=== PATIENT | female | born 1995 | race Caucasian/White ===

== ENCOUNTER 2017-03-10 12:47 | Day surgery (SDC) | payer OTHER, SELFPAY ==
--- NOTE | 2017-03-10 12:17 | CT ---
CT abdomen and pelvis Technique: Multiple axial sections were obtained from above the dome of the diaphragm inferiorly through the pubic symphysis. Intravenous and oral contrast was utilized. Delayed images were also obtained through the pelvis. Findings: Tubular structure is seen within the right lower quadrant. This appears to represent the patient's appendix and shows slight inflammatory change and is felt compatible with early appendicitis. Visualized lung bases are shows a nodule on the left side above the hemidiaphragm. This nodule measures approximately 9 mm and shows a central calcification and likely represents granuloma especially when considering the below described spleen findings. Liver appears within normal limits. Spleen shows evidence of calcified granulomas. Adrenal glands show no nodule. Pancreas is within normal limits. Aorta shows no aneurysmal dilatation. Kidneys show symmetric contrast enhancement without hydronephrosis or mass. There are some areas of cortical scarring noted within the right kidney. No mesenteric abnormalities are seen. No pelvic mass or adenopathy is seen. Bone window settings were reviewed which appears within normal limits for the patient's age. Impression: 1. Findings felt compatible with early appendicitis. 2. Small calcified granulomas within the spleen as well as a 9 mm granuloma within the left lung base. 3. Areas of scarring within the right kidney. 4. No additional abnormality is seen on CT study of the abdomen and pelvis. Diagnostic code #5
[~2017-03-10 12:47] MED LIST: Diatrizoate Meglumine/Diatrizoate Sodium 37% 120 ML Bottle PO ONE; Iopamidol 612 MG/ML 150 ML Bottle IVPUSH ONE; Sodium Chloride 0.9% 10 ML Syringe FLUSH PRN
[2017-03-10] MEDS ORDERED: Rocuronium 50 MG/5 ML Vial ONE (13:29)
[2017-03-10] MEDS ORDERED: Succinylcholine 200 MG/10 ML MDV ONE (13:29)
[2017-03-10] MEDS ORDERED: Dexamethasone 4 MG/ML 5 ML MDV ONE (13:29)
[2017-03-10] MEDS ORDERED: Lidocaine 1% 4 ML ONE (13:29)
[2017-03-10] MEDS ORDERED: Ondansetron 4 MG/2 ML SDV ONE (13:29)
[2017-03-10] MEDS ORDERED: Propofol 200 MG/20 ML SDV ONE ×2 (13:29→14:26)
[2017-03-10] MEDS ORDERED: Ketorolac 30 MG/ML SDV ONE (13:29)
[2017-03-10] MEDS ORDERED: ceFAZolin 1 GM Vial ONE (13:29)
[2017-03-10] MEDS ORDERED: fentaNYL 250 MCG/5 ML SDV ONE (13:30)
--- NOTE | 2017-03-10 13:36 | PCM.PREANE ---
Preanesthetic Assessment - Procedure Proposed Procedure: Laparoscopic Appendectomy - Anesthesia/Transfusion/Family Hx Anesthesia History: Prior Anesthesia Without Reaction Family History of Anesthesia Reaction: No Transfusion History: No Prior Transfusion(s) Intubation History: Unknown - Review of Systems General: Chills (last night ) Pulmonary: Other (asthma- uses albuterol PRN ) Cardiovascular: No Symptoms Gastrointestinal: Nausea, Vomiting (last night ) Neurological: No Symptoms Other: Reports: None - Physical Assessment NPO Status Date: 03/10/17 NPO Status Time: 11:00 Pulse: 58 O2 Sat by Pulse Oximetry: 96 Respiratory Rate: 18 Blood Pressure: 128/76 Temperature: 36.6 C Height: 1.7 m Weight: 108.862 kg ASA Class: 1E Mental Status: Alert & Oriented x3 Dentition: Reports: Normal Dentition Thyro-Mental Finger Breadths: 3 Mouth Opening Finger Breadths: 3 ROM/Head Extension: Full Lungs: Clear to Auscultation, Normal Respiratory Effort Cardiovascular: Regular Rate, Regular Rhythm - Lab Values: Laboratory Last Values WBC 8.35 K/mm3 (3.98-10.04) 03/10/17 09:40 RBC 4.36 M/mm3 (3.98-5.22) 03/10/17 09:40 Hgb 12.4 gm/L (11.2-15.7) 03/10/17 09:40 Hct 36.3 % (34.1-44.9) 03/10/17 09:40 MCV 83.3 fl (79.4-94.8) 03/10/17 09:40 MCH 28.4 pg (25.6-32.2) 03/10/17 09:40 MCHC 34.2 g/dl (32.2-35.5) 03/10/17 09:40 RDW Std Deviation 37.2 fL (36.4-46.3) 03/10/17 09:40 Plt Count 174 K/mm3 (182-369) L 03/10/17 09:40 MPV 10.8 fl (9.4-12.3) 03/10/17 09:40 Neut % (Auto) 69.8 % (34.0-71.1) 03/10/17 09:40 Lymph % (Auto) 22.6 % (19.3-51.7) 03/10/17 09:40 Nolan % (Auto) 6.9 % (4.7-12.5) 03/10/17 09:40 Eos % (Auto) 0.5 (0.7-5.8) L 03/10/17 09:40 Baso % (Auto) 0.1 % (0.1-1.2) 03/10/17 09:40 Neut # (Auto) 5.82 K/mm3 (1.56-6.13) 03/10/17 09:40 Lymph # (Auto) 1.89 K/mm3 (1.18-3.74) 03/10/17 09:40 Nolan # (Auto) 0.58 K/mm3 (0.24-0.36) H 03/10/17 09:40 Eos # (Auto) 0.04 K/mm3 (0.04-0.36) 03/10/17 09:40 Baso # (Auto) 0.01 K/mm3 (0.01-0.08) 03/10/17 09:40 Sodium 139 mEq/L (136-145) 03/10/17 09:40 Potassium 3.6 mEq/L (3.5-5.1) 03/10/17 09:40 Chloride 103 mEq/L (98-107) 03/10/17 09:40 Carbon Dioxide 26 mEq/L (21-32) 03/10/17 09:40 Anion Gap 13.6 (5-15) 03/10/17 09:40 BUN 11 mg/dL (7-18) 03/10/17 09:40 Creatinine 0.8 mg/dL (0.55-1.02) 03/10/17 09:40 Est Cr Clr Drug Dosing 107.26 mL/min 03/10/17 09:40 Estimated GFR (MDRD) > 60 mL/min (>60) 03/10/17 09:40 BUN/Creatinine Ratio 13.8 (14-18) L 03/10/17 09:40 Glucose 87 mg/dL (74-106) 03/10/17 09:40 Calcium 9.4 mg/dL (8.5-10.1) 03/10/17 09:40 Total Bilirubin 0.6 mg/dL (0.2-1.0) 03/10/17 09:40 AST 14 U/L (15-37) L 03/10/17 09:40 ALT 28 U/L (14-59) 03/10/17 09:40 Alkaline Phosphatase 59 U/L (46-116) 03/10/17 09:40 C-Reactive Protein 2.2 mg/dL (<1.0) H* 03/10/17 09:40 Total Protein 7.8 g/dl (6.4-8.2) 03/10/17 09:40 Albumin 4.0 g/dl (3.4-5.0) 03/10/17 09:40 Globulin 3.8 gm/dL 03/10/17 09:40 Albumin/Globulin Ratio 1.1 (1-2) 03/10/17 09:40 Lipase 101 U/L (73-393) 03/10/17 09:40 Urine Color Yellow (Yellow) 03/10/17 09:40 Urine Appearance Slt cloudy (Clear) H 03/10/17 09:40 Urine pH 6.5 (5.0-8.0) 03/10/17 09:40 Ur Specific [place] 1.010 (1.005-1.030) 03/10/17 09:40 Urine Protein Negative (Negative) 03/10/17 09:40 Urine Glucose (UA) Negative (Negative) 03/10/17 09:40 Urine Ketones Negative (Negative) 03/10/17 09:40 Urine Occult Blood Negative (Negative) 03/10/17 09:40 Urine Nitrite Negative (Negative) 03/10/17 09:40 Urine Bilirubin Negative (Negative) 03/10/17 09:40 Urine Urobilinogen 0.2 (0.2-1.0) 03/10/17 09:40 Ur Leukocyte Esterase 2+ (Negative) H 03/10/17 09:40 Urine RBC 0-5 /hpf (0-5) 03/10/17 09:40 Urine WBC 10-20 /hpf (0-5) H 03/10/17 09:40 Ur Epithelial Cells 5-10 /hpf (0-5) H 03/10/17 09:40 Urine Bacteria Few /hpf (FEW) 03/10/17 09:40 Urine Mucus Not seen /hpf (FEW) 03/10/17 09:40 Urine HCG, Qual Negative (NEGATIVE) 03/10/17 09:40 H. pylori IgG Antibody Positive (NEGATIVE) H 03/10/17 09:40 - Allergies Allergies/Adverse Reactions: Allergies Allergy/AdvReac Type Severity Reaction Status Date / Time No Known Allergies Allergy Verified 05/31/15 02:58 - Blood Blood Available: No Product(s) Available: None - Anesthesia Plan Pre-Op Medication Ordered: None - Acknowledgements Anesthesia Type Planned: General Anesthesia (RSI) Pt an Appropriate Candidate for the Planned Anesthesia: Yes Alternatives and Risks of Anesthesia Discussed w Pt/Guardian: Yes Pt/Guardian Understands and Agrees with Anesthesia Plan: Yes PreAnesthesia Questionnaire - Past Health History Medical/Surgical History: Denies Medical/Surgical History Other Dermatologic History: rashes to left leg, stated as ringworm - SUBSTANCE USE Smoking Status *Q: Never Smoker Second Hand Smoke Exposure: No Recreational Drug Use History: No - HOME MEDS Home Medications: Home Meds Benzonatate [Tessalon Perles] 200 mg PO TID #15 cap 05/31/15 [Rx] Albuterol [Ventolin HFA] 2 puff INH Q4H PRN 06/03/15 [History] Hydrocodone/Chlorphen P-Stirex [Tussionex Pennkinetic Susp] 5 ml PO BEDTIME PRN #75 ml 06/03/15 [Rx] predniSONE 40 mg PO DAILY #14 tablet 06/03/15 [Rx] - CURRENT (IN HOUSE) MEDS Current Meds: Current Medications Cefoxitin Sodium 1 gm/ Premix 50 mls @ 100 mls/hr IV ONETIME ONE Stop: 03/10/17 14:09 Metronidazole 500 mg/ Premix 100 mls @ 100 mls/hr IV ONETIME ONE Stop: 03/10/17 14:39 Discontinued Medications Bupivacaine HCl (Marcaine 0.5%) Confirm Administered Dose 30 ml .ROUTE .STK-MED ONE Stop: 03/10/17 13:16 Cefazolin Sodium (Ancef) Confirm Administered Dose 2 gm .ROUTE .STK-MED ONE Stop: 03/10/17 13:30 Dexamethasone (Dexamethasone) Confirm Administered Dose 20 mg .ROUTE .STK-MED ONE Stop: 03/10/17 13:30 Diatrizoate Meglum/Diatrizoate Sod (Gastrografin 37%) 120 ml PO ONETIME ONE Stop: 03/10/17 10:38 Last Admin: 03/10/17 11:32 Dose: 90 ml Fentanyl (Sublimaze) Confirm Administered Dose 250 mcg .ROUTE .STK-MED ONE Stop: 03/10/17 13:31 Lidocaine HCl (Xylocaine-Mpf 1%) Confirm Administered Dose 4 mls @ as directed .ROUTE .STK-MED ONE Stop: 03/10/17 13:30 Iopamidol (Isovue-300 (61%)) 150 ml IVPUSH ONETIME ONE Stop: 03/10/17 10:38 Last Admin: 03/10/17 11:32 Dose: 100 ml Ketorolac Tromethamine (Toradol) Confirm Administered Dose 30 mg .ROUTE .STK- MED ONE Stop: 03/10/17 13:30 Ondansetron HCl (Zofran) Confirm Administered Dose 4 mg .ROUTE .STK-MED ONE Stop: 03/10/17 13:30 Propofol (Diprivan 20 Ml) Confirm Administered Dose 200 mg .ROUTE .STK-MED ONE Stop: 03/10/17 13:30 Rocuronium [place] (Zemuron) Confirm Administered Dose 50 mg .ROUTE .STK-MED ONE Stop: 03/10/17 13:30 Sodium Chloride (Saline Flush) 10 ml FLUSH ONETIME PRN PRN Reason: IV FLUSH Stop: 03/10/17 13:00 Last Admin: 03/10/17 11:32 Dose: 10 ml Succinylcholine Chloride (Quelicin) Confirm Administered Dose 200 mg .ROUTE .STK -MED ONE Stop: 03/10/17 13:30
[2017-03-10] MEDS ORDERED: cefOXitin 1 GM in Premix Bag 1 BAG IV ONE (13:40)
[2017-03-10] MEDS ORDERED: metroNIDAZOLE/Normal Saline 500 MG in Premix Bag 1 BAG IV ONE (13:40)
[2017-03-10] MEDS ORDERED: Midazolam 1 MG/ML 2 ML SDV ONE (13:48)
[2017-03-10] MEDS: Bupivacaine 0.5% 30 ML SDV ONE ×2 (14:12→14:44)
[2017-03-10] MEDS ORDERED: Metoclopramide 10 MG/2 ML SDV ONE (14:28)
[2017-03-10] MEDS ORDERED: fentaNYL 100 MCG/2 ML SDV IVPUSH PRN (15:08)
[2017-03-10] MEDS ORDERED: Ondansetron 4 MG/2 ML SDV IVPUSH PRN (15:08)
--- NOTE | 2017-03-10 15:11 | HP ---
DATE OF ADMISSION: 03/10/2017 HISTORY OF PRESENT ILLNESS: A 22-year-old female who yesterday, about 7 o'clock, had pain in the abdomen, followed by some vomiting. The pain persisted and associated with loss of appetite, and she came into the outpatient clinic at [facility], where a CT scan demonstrated some calcifications in the spleen and in the hilum of the lung, but also acute appendicitis. The patient states that she has not had any major abdominal surgery. PAST MEDICAL HISTORY: She has been in good health. FAMILY HISTORY: Negative, especially for TB. ALLERGIES: None. SOCIAL HISTORY: No smoking. No drinking. REVIEW OF SYSTEMS: No chest pain, shortness of breath, cough, hoarseness, wheezing, fainting, weakness, numbness, or convulsions. PHYSICAL EXAMINATION: GENERAL: Reveals an alert and cooperative female. VITAL SIGNS: Stable. EYES: Sclerae white. Extraocular muscle motion normal. ORAL CAVITY: Healthy mucous membrane with mouth and tongue. NECK: Supple. No nodes. No thyromegaly. Trachea midline. LUNGS: Clear. No rales, rhonchi, fremitus, or dullness. HEART: Tones regular rate. No S3, S4, jugular venous distention, or murmurs. ABDOMEN: Tenderness and guarding in right lower quadrant. EXTREMITIES: Upper and lower extremities, no angulation deformities. SKIN: Exam shows multiple tattoos. NEUROLOGIC: No sensorineural deficit. Cranial nerves 3 through 12 intact and moves all 4 extremities. MUSCULOSKELETAL: Moves all 4 extremities. ASSESSMENT: 1. Acute appendicitis. 2. Calcifications as described on CT scan. Further workup indicated. PLAN: Proceed with laparoscopic appendectomy. Risks and complications discussed with the patient, she understands and consents. MMODAL /[id number]
[2017-03-10] MEDS ORDERED: Neostigmine Methylsulfate 10 MG/10 ML MDV ONE (15:31)
[2017-03-10] MEDS ORDERED: Glycopyrrolate 0.2 MG/ML SDV ONE ×3 (15:31)
--- NOTE | 2017-03-10 15:37 | PCM.OPNOTE ---
- General Post-Op/Procedure Note Date of Surgery/Procedure: 03/10/17 Operative Procedure(s): lap appy Pre Op Diagnosis: acute appendicitis Post-Op Diagnosis: Same Anesthesia Technique: General ET Tube Primary Surgeon: Horacio Arreola EBL in mLs: 10 Complications: None Condition: Good
--- NOTE | 2017-03-10 15:43 | PCM.POSTAN ---
POST ANESTHESIA ASSESSMENT - MENTAL STATUS Mental Status: Alert, Oriented - VITAL SIGNS Pulse Rate: 67 SaO2: 99 Resp Rate: 16 Blood Pressure: 129/77 Temperature: 99.0 C - RESPIRATORY Respiratory Status: Respiratory Rate WNL, Airway Patent, O2 Saturation Stable - CARDIOVASCULAR CV Status: Pulse Rate WNL, Blood Pressure Stable - GASTROINTESTINAL GI Status: No Symptoms - PAIN Pain Score: 0 - POST OP HYDRATION Hydration Status: Adequate & Stable
[2017-03-10] MEDS ORDERED: HYDROmorphone 0.5 MG/0.5 ML Syringe IVPUSH PRN (16:00)
--- NOTE | 2017-03-10 16:02 | PCM48HPAN ---
Post Anesthesia Note - EVALUATION WITHIN 48HRS OF ANESTHETIC Vital Signs in Normal Range: Yes Patient Participated in Evaluation: Yes Respiratory Function Stable: Yes Airway Patent: Yes Cardiovascular Function Stable: Yes Hydration Status Stable: Yes Pain Control Satisfactory: Yes Nausea and Vomiting Control Satisfactory: Yes Mental Status Recovered: Yes
[2017-03-10] MEDS ORDERED: Acetaminophen/HYDROcodone 325-5 MG Tab PO ONE (16:15)
[2017-03-10 16:35] VITALS: BP 135/82
--- NOTE | 2017-03-11 10:21 | OR ---
DATE OF OPERATION: 03/10/2017 SURGEON: Horacio Arreola MD PREOPERATIVE DIAGNOSIS: Acute appendicitis. POSTOPERATIVE DIAGNOSIS: Acute appendicitis. OPERATION PERFORMED: Laparoscopic appendectomy. ANESTHESIA: General. ESTIMATED BLOOD LOSS: About 10 mL. FINDINGS: Early acute appendicitis. DESCRIPTION OF PROCEDURE: The patient was taken to the operating room, placed in a supine position, connected to monitoring equipment, given a general anesthetic and intubated. Antibiotics were given. SCDs were placed and the abdomen was clipped and prepped with DuraPrep and draped off in a sterile fashion. Incision was made just below the umbilicus and carried down by sharp dissection to the fascia. This was incised and abdominal cavity entered. Roxana trocar placed, secured with stay sutures. Pneumoperitoneum established. A 5 mm 30 degree camera was then inserted, demonstrated fluid around the cecum with an inflamed appendix. The patient was placed in reverse Trendelenburg leftward tilt and a 5-mm trocar placed in right upper quadrant and 1 in the right lower quadrant. Appendix was mobilized and a window was made at the base of the cecum and the Ethicon Endo- ligator was placed in that window and the appendix was from the cecum. Another firing of the Endo ligator the mesoappendix from the appendix and the appendix was then placed in an Endobag and removed from the abdominal cavity. Pneumoperitoneum was then re-established and the clot that was formed was then sucked out. One area of the mesoappendix was suspicious for bleeding and an 0 PDS Endoloop was placed over this. It was then checked, excellent hemostasis was observed and a good secure appendicular stump was identified with a good staple line. This completed the intraabdominal portion. Pneumoperitoneum and ports were removed in the subumbilical port. The fascia was closed with running 0 Vicryl suture. The skin of each port closed with subdermal 4-0 Dexon sutures. Steri-Strips sterile dressing placed and 0.5% Marcaine was instilled in the skin along with a sterile dressing. The patient tolerated the procedure and sent to recovery room in a stable condition. MMODAL /[id number]
== END 2017-03-10 17:00 | disposition home or self-care (01) ==
LOC: JD.SDS 12:47
PROVIDERS: ATTEND Surgery
DX: K35.3 Acute appendicitis with localized peritonitis (principal)
CPT/HCPCS: 36415; 44970; 74177; 80053; 81001; 81025; 83690; 85025; 86140; 86480; 86677; 87086; A9270; J0330; J0694; J1100; J1885; J2250; J2405; J2710; J2765; J3010; J3490; J7050; Q9967; 00840; J0690; J2704

== ENCOUNTER 2017-11-13 07:31 | Emergency (ER) | payer SELFPAY ==
[2017-11-13 07:37] VITALS: BP 144/73
--- NOTE | 2017-11-13 07:54 | EDM.PDOC ---
ED HPI GENERAL MEDICAL PROBLEM - General Chief Complaint: ENT Problem Stated Complaint: EAR PAIN BOTH EARS Time Seen by Provider: 11/13/17 07:44 Source of Information: Reports: Patient History Limitations: Reports: No Limitations - History of Present Illness INITIAL COMMENTS - FREE TEXT/NARRATIVE: The patient presents with bilateral ear pain. This started last night. Last week she had allergy symptoms. She still has some congestion and a mild sore throat. She does not think she has a fever. She has no cough. She has not had an ear infection in years. Onset: Gradual Duration: Day(s): (Last night) Location: Reports: Other (Bilateral ears) Quality: Reports: Sharp Severity: Severe Improves with: Reports: None Worsens with: Reports: None Associated Symptoms: Reports: No Other Symptoms Bilateral Ear Pain Score (Numeric/FACES): 8 - Related Data Allergies Allergy/AdvReac Type Severity Reaction Status Date / Time No Known Allergies Allergy Verified 11/13/17 07:37 Home Meds: Home Meds Albuterol [Ventolin HFA] 2 puff INH Q4H PRN 06/03/15 [History] Amoxicillin 1,000 mg PO BID #30 tab 11/13/17 [Rx] Past Medical History - Past Health History Medical/Surgical History: Denies Medical/Surgical History HEENT History: Reports: None Cardiovascular History: Reports: None Respiratory History: Reports: Asthma, Bronchitis, Recurrent Other Respiratory History: ? TB exposure Gastrointestinal History: Reports: Helicobacter Pylori [place] History: Reports: Musculoskeletal History: Reports: None Neurological History: Reports: None Psychiatric History: Reports: None Endocrine/Metabolic History: Reports: None Hematologic History: Reports: None Immunologic History: Reports: None Oncologic (Cancer) History: Reports: None Dermatologic History: Reports: Benign Melanoma, Other (See Below) Other Dermatologic History: rashes to left leg, stated as ringworm - Infectious Disease History Infectious Disease History: Reports: TB - Past Surgical History Head Surgeries/Procedures: Reports: None Oncologic Surgical History: Reports: None Social & Family History - Tobacco Use Smoking Status *Q: Former Smoker Used Tobacco, but Quit: Yes Month/Year Tobacco Last Used: 3 years Second Hand Smoke Exposure: No - Caffeine Use Caffeine Use: Reports: Coffee, Soda - Recreational Drug Use Recreational Drug Use: No ED ROS ENT - Review of Systems Review Of Systems: See Below Constitutional: Reports: No Symptoms HEENT: Reports: Ear Pain, Throat Pain Respiratory: Reports: No Symptoms Cardiovascular: Reports: No Symptoms Endocrine: Reports: No Symptoms GI/Abdominal: Reports: No Symptoms : Reports: No Symptoms Musculoskeletal: Reports: No Symptoms ED EXAM, ENT - Physical Exam Exam: See Below Exam Limited By: No Limitations General Appearance: Alert, No Apparent Distress Ears: Normal External Exam, TM Bulging, TM Dullness, TM Erythema, TM Fluid Nose: Normal Inspection Mouth/Throat: Normal Inspection Head: Atraumatic, Normocephalic Neck: Normal Inspection Respiratory/Chest: No Respiratory Distress, Lungs Clear, Normal Breath Sounds Cardiovascular: Regular Rate, Rhythm, No Edema, No Murmur GI/Abdominal: Soft, Non-Tender, No Organomegaly, No Mass Extremities: Normal Inspection Neurological: Alert, Oriented, No Motor/Sensory Deficits Course - Vital Signs Last Recorded V/S: Last Vital Signs Temp 97.9 F 11/13/17 07:35 Pulse 68 11/13/17 07:35 Resp 18 11/13/17 07:35 BP 144/73 H 11/13/17 07:35 Pulse Ox 96 11/13/17 07:35 Departure - Departure Time of Disposition: 07:55 Disposition: Home, Self-Care 01 Condition: Good Clinical Impression: Otitis media Qualifiers: Otitis media type: serous Chronicity: acute Laterality: bilateral Recurrence: not specified as recurrent Qualified Code(s): H65.03 - Acute serous otitis media , bilateral - Discharge Information Prescriptions: Amoxicillin 1,000 mg PO BID #30 tab Referrals: Kandace Wilkins PA-C [Primary Care Provider] - 1 Week Forms: ED Department Discharge, ED Return to Work/School Form Additional Instructions: Take the amoxicillin 2 pills 2 times per day until gone. Take motrin or tylenol for pain. Drink plenty of fluids and get some rest today. Please return if you are worse.
== END 2017-11-13 07:59 | disposition home or self-care (01) ==
LOC: JD.ED 07:31
DX: H65.03 Acute serous otitis media, bilateral (principal); Z87.891 Personal history of nicotine dependence
CPT/HCPCS: 99283

== ENCOUNTER 2018-01-07 15:21 | Emergency (ER) | payer MEDICAID ==
[2018-01-07 15:36] VITALS: BP 143/92
[2018-01-07] MEDS ORDERED: Ibuprofen 800 MG Tab PO ONE (16:16)
--- NOTE | 2018-01-07 16:16 | EDM.PDOC ---
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 She states that she has been expecting to have a miscarriage because her ultrasound 2 weeks ago showed that there was no heartbeat. She was counseled by her OB provider that she should expect a miscarriage. She started bleeding a couple of hours ago. States the bleeding is heavy. She's passing clots. She has some lower abdominal cramping that is mild to moderate. No lightheadedness or syncope. No vomiting. No additional complaint. Bleeding so far has been constant and heavy. Pelvic Pain Score (Numeric/FACES): 6 - Related Data Allergies Allergy/AdvReac Type Severity Reaction Status Date / Time No Known Allergies Allergy Verified 11/13/17 07:37 Home Meds: Home Meds Albuterol [Ventolin HFA] 2 puff INH Q4H PRN 06/03/15 [History] ALPRAZolam [Xanax] 0.5 mg PO BEDTIME 01/07/18 [History] Past Medical History - Past Health History Medical/Surgical History: Denies Medical/Surgical History HEENT History: Reports: None Cardiovascular History: Reports: None Respiratory History: Reports: Asthma, Bronchitis, Recurrent Other Respiratory History: ? 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: Musculoskeletal History: Reports: None Neurological History: Reports: None Psychiatric History: Reports: None Endocrine/Metabolic History: Reports: None Hematologic History: Reports: None Immunologic History: Reports: None Oncologic (Cancer) History: Reports: None Dermatologic History: Reports: Benign Melanoma, Other (See Below) Other Dermatologic History: rashes to left leg, stated as ringworm - Infectious Disease History Infectious Disease History: Reports: TB - Past Surgical History Head Surgeries/Procedures: Reports: None Oncologic Surgical History: Reports: None Social & Family History - Tobacco Use Smoking Status *Q: Never Smoker - Caffeine Use Caffeine Use: Reports: Coffee - Recreational Drug Use Recreational Drug Use: No ED ROS GENERAL - Review of Systems Review Of Systems: See Below Constitutional: Denies: Fever HEENT: Reports: No Symptoms Respiratory: Denies: Shortness of Breath Cardiovascular: Reports: No Symptoms Endocrine: Reports: No Symptoms GI/Abdominal: Denies: Vomiting : Denies: Dysuria Musculoskeletal: Reports: No Symptoms Skin: Reports: No Symptoms Neurological: Reports: No Symptoms. Denies: Dizziness Psychiatric: Reports: No Symptoms ED EXAM - Physical Exam Exam: See Below Exam Limited By: No Limitations General Appearance: Alert, WD/WN, No Apparent Distress Eye Exam: Bilateral Eye: Normal Inspection Ears: Normal External Exam Nose: Normal Inspection Throat/Mouth: Normal Inspection, Normal Oropharynx, Normal Voice, No Airway Compromise Head: Atraumatic, Normocephalic Neck: Normal Inspection, Supple, Non-Tender, Full Range of Motion Respiratory/Chest: No Respiratory Distress, Lungs Clear, Normal Breath Sounds, Chest Non-Tender Cardiovascular: Normal Peripheral Pulses, Regular Rate, Rhythm, No Murmur GI/Abdominal Exam: Soft, Non-Tender, No Distention. No: Rebound Back Exam: Normal Inspection Extremities: Normal Inspection Neurological: Alert, Oriented, Normal Cognition, No Motor/Sensory Deficits Psychiatric: Normal Affect, Normal Mood Skin Exam: Warm, Dry, Intact, Normal Color, No Rash Course - Vital Signs Last Recorded V/S: Last Vital Signs Temp 36.8 C 01/07/18 15:31 Pulse 63 01/07/18 15:31 Resp 18 01/07/18 15:31 BP 143/92 H 01/07/18 15:31 Pulse Ox 100 01/07/18 15:31 - Orders/Labs/Meds Labs: Laboratory Tests 01/07/18 01/07/18 Range/Units 15:52 16:22 WBC 8.48 (3.98-10.04) K/mm3 RBC 4.46 (3.98-5.22) M/mm3 Hgb 12.3 (11.2-15.7) gm/L Hct 36.8 (34.1-44.9) % MCV 82.5 (79.4-94.8) fl MCH 27.6 (25.6-32.2) pg MCHC 33.4 (32.2-35.5) g/dl RDW Std Deviation 38.7 (36.4-46.3) fL Plt Count 211 (182-369) K/mm3 MPV 11.1 (9.4-12.3) fl Neut % (Auto) 60.4 (34.0-71.1) % Lymph % (Auto) 30.9 (19.3-51.7) % [place] % (Auto) 6.5 (4.7-12.5) % Eos % (Auto) 2.0 (0.7-5.8) Baso % (Auto) 0.1 (0.1-1.2) % Neut # (Auto) 5.12 (1.56-6.13) K/mm3 Lymph # (Auto) 2.62 (1.18-3.74) K/mm3 [place] # (Auto) 0.55 H (0.24-0.36) K/mm3 Eos # (Auto) 0.17 (0.04-0.36) K/mm3 Baso # (Auto) 0.01 (0.01-0.08) K/mm3 Sodium 136 (136-145) mEq/L Potassium 3.5 (3.5-5.1) mEq/L Chloride 102 (98-107) mEq/L Carbon Dioxide 25 (21-32) mEq/L Anion Gap 12.5 (5-15) BUN 11 (7-18) mg/dL Creatinine 0.7 (0.55-1.02) mg/dL Est Cr Clr Drug Dosing 122.59 mL/min Estimated GFR (MDRD) > 60 (>60) mL/min BUN/Creatinine Ratio 15.7 (14-18) Glucose 87 (74-106) mg/dL Calcium 9.1 (8.5-10.1) mg/dL Total Bilirubin 0.3 (0.2-1.0) mg/dL AST 15 (15-37) U/L ALT 19 (14-59) U/L Alkaline Phosphatase 60 (46-116) U/L Total Protein 7.7 (6.4-8.2) g/dl Albumin 3.6 (3.4-5.0) g/dl Globulin 4.1 gm/dL Albumin/Globulin Ratio 0.9 L (1-2) HCG, Quant 41238.0 mIU/mL Meds: Medications Discontinued Medications Generic Name Dose Route Start Last Admin Trade Name Freq PRN Reason Stop Dose Admin Ibuprofen 800 mg 01/07/18 16:16 01/07/18 16:28 Motrin PO 01/07/18 16:17 800 mg ONETIME ONE Administration - Re-Assessments/Exams Free Text/Narrative Re-Assessment/Exam: 01/08/18 21:11 Ultrasound dated 12/26/17 shows a gestational sac but no pole consistent with a 6 week nonviable . She does appear to be miscarrying now. There is no suggestion of additional ectopic on that ultrasound report. Given 6 week gestational sac but no pole have no concern for maternal transfusion and therefore will not pursue Rh testing. 01/08/18 21:12 Departure - Departure Time of Disposition: 16:15 Disposition: Home, Self-Care 01 Clinical Impression: Threatened - Discharge Information Instructions: Threatened Miscarriage, [id number] Referrals: Kandace Wilkins PA-C [Primary Care Provider] - Forms: ED Department Discharge Additional Instructions: 1. Follow up with your primary care provider on Tuesday if possible. Take ibuprofen as needed for pain. 2. Return to the ED if you have severe bleeding and dizziness/lightheadedness or weakness.
== END 2018-01-07 16:30 | disposition home or self-care (01) ==
LOC: JD.ED 15:21
DX: O20.0 Threatened abortion (principal); Z3A.11 11 weeks gestation of pregnancy
CPT/HCPCS: 36415; 80053; 84702; 85025; 99284; A9270; 99283

== ENCOUNTER 2018-01-20 18:34 | Day surgery (SDC) | payer MEDICAID ==
[2018-01-20] MEDS ORDERED: Sodium Chloride 0.9% 1,000 ML IV ONE (18:55)
--- NOTE | 2018-01-20 19:00 | EDM.PDOC ---
ED HPI GENERAL MEDICAL PROBLEM - General Chief Complaint: NEUROSURGERY SPINE PHYSICIAN Problem Stated Complaint: BLEEDING RECENT MISCARRIAGE Time Seen by Provider: 01/20/18 18:55 Source of Information: Reports: Patient History Limitations: Reports: No Limitations - History of Present Illness INITIAL COMMENTS - FREE TEXT/NARRATIVE: Romi is a 22yo female presents ambulatory to ER with increased vaginal bleeding/clots, who recently miscarried at 9weeks, confirmed on January 07 with NEUROSURGERY SPINE PHYSICIAN. She was scheduled for D&C this morning with Dr. Jamison and Dr. Andres. Bleeding let up yesterday so D&C was subsequently cancelled. Today at around 1300 bleeding became heavy again, she is passing tissue/clots and is having worsening of cramping. She had Rhogam a week ago in the clinic. She has a dull headache, no other symptoms. No vision change, CP, palpitations, SOB, cough, vomiting/diarrhea. Last ate at 1530, sandwich, milk and crackers. Lower Abdomen Pain Score (Numeric/FACES): 5 - Related Data Allergies Allergy/AdvReac Type Severity Reaction Status Date / Time No Known Allergies Allergy Verified 01/19/18 13:22 Home Meds: Home Meds Albuterol [Ventolin HFA] 2 puff INH Q4H PRN 06/03/15 [History] ALPRAZolam [Xanax] 0.5 mg PO BEDTIME 01/07/18 [History] Past Medical History - Past Health History Medical/Surgical History: Denies Medical/Surgical History HEENT History: Reports: None Cardiovascular History: Reports: None Respiratory History: Reports: Asthma, Bronchitis, Recurrent Other Respiratory History: ? TB exposure Gastrointestinal History: Reports: Helicobacter Pylori Genitourinary History: Reports: Other (See Below) Other Genitourinary History: dysuria NEUROSURGERY SPINE PHYSICIAN History: Reports: , Other (See Below) Other NEUROSURGERY SPINE PHYSICIAN History: SAB, , vaginal discharge, bacterial vaginitis Musculoskeletal History: Reports: None Neurological History: Reports: Other (See Below) Other Neuro History: dizziness Psychiatric History: Reports: None Endocrine/Metabolic History: Reports: None Hematologic History: Reports: None Immunologic History: Reports: None Oncologic (Cancer) History: Reports: None Dermatologic History: Reports: Benign Melanoma, Urticaria Other Dermatologic History: rashes to left leg, stated as ringworm - Infectious Disease History Infectious Disease History: Reports: TB - Past Surgical History Head Surgeries/Procedures: Reports: None HEENT Surgical History: Reports: None Respiratory Surgical History: Reports: None GI Surgical History: Reports: Appendectomy Neurological Surgical History: Reports: None Musculoskeletal Surgical History: Reports: None Oncologic Surgical History: Reports: None Social & Family History - Tobacco Use Smoking Status *Q: Never Smoker - Caffeine Use Caffeine Use: Reports: Coffee, Soda, Tea - Recreational Drug Use Recreational Drug Use: No ED ROS GENERAL - Review of Systems Review Of Systems: See Below Constitutional: Reports: No Symptoms HEENT: Reports: No Symptoms Respiratory: Reports: No Symptoms. Denies: Shortness of Breath, Cough Cardiovascular: Reports: No Symptoms. Denies: Chest Pain, Blood Pressure Problem, Dyspnea on Exertion, Lightheadedness, Palpitations GI/Abdominal: Reports: Abdominal Pain (pelvic pain/cramping). Denies: Constipation, Diarrhea, Nausea, Vomiting : Reports: Other (see HPI- increased vaginal bleeding, cramps and clots) Skin: Reports: No Symptoms Neurological: Reports: Headache (dull VELAZQUEZ). Denies: Confusion, Dizziness ED EXAM - Physical Exam Exam: See Below Exam Limited By: No Limitations General Appearance: Alert, WD/WN, No Apparent Distress Eye Exam: Bilateral Eye: EOMI, PERRL Ears: Normal External Exam, Hearing Grossly Normal Nose: Normal Inspection Throat/Mouth: Normal Inspection, Normal Teeth, Normal Gums, Normal Voice, No Airway Compromise Head: Atraumatic, Normocephalic Neck: Normal Inspection Respiratory/Chest: No Respiratory Distress, Lungs Clear, Normal Breath Sounds Cardiovascular: Regular Rate, Rhythm, No Murmur GI/Abdominal Exam: Normal Bowel Sounds, Soft, Other Rectal Exam: Deferred Extremities: Normal Inspection, No Pedal Edema Neurological: Alert, Oriented, CN II-XII Intact Psychiatric: Normal Affect, Normal Mood Skin Exam: Warm, Dry, Intact Course - Vital Signs Last Recorded V/S: Last Vital Signs Temp 98.9 F 01/20/18 18:43 Pulse 75 01/20/18 18:43 Resp 20 01/20/18 18:43 BP 138/90 01/20/18 18:43 Pulse Ox 100 01/20/18 18:43 - Orders/Labs/Meds Orders: Active Orders 24 hr Category Date Time Status Admission Status [Patient Status] [ADT] Routine ADT 01/20/18 21:02 Active Schedule Procedure [COMM] Stat Oth 01/20/18 21:02 Ordered Labs: Laboratory Tests 01/20/18 Range/Units 19:25 WBC 5.45 (3.98-10.04) K/mm3 RBC 3.79 L (3.98-5.22) M/mm3 Hgb 10.7 L (11.2-15.7) gm/L Hct 32.0 L (34.1-44.9) % MCV 84.4 (79.4-94.8) fl MCH 28.2 (25.6-32.2) pg MCHC 33.4 (32.2-35.5) g/dl RDW Std Deviation 38.5 (36.4-46.3) fL Plt Count 209 (182-369) K/mm3 MPV 10.9 (9.4-12.3) fl Neut % (Auto) 49.3 (34.0-71.1) % Lymph % (Auto) 40.2 (19.3-51.7) % [place] % (Auto) 8.3 (4.7-12.5) % Eos % (Auto) 2.0 (0.7-5.8) Baso % (Auto) 0.2 (0.1-1.2) % Neut # (Auto) 2.69 (1.56-6.13) K/mm3 Lymph # (Auto) 2.19 (1.18-3.74) K/mm3 [place] # (Auto) 0.45 H (0.24-0.36) K/mm3 Eos # (Auto) 0.11 (0.04-0.36) K/mm3 Baso # (Auto) 0.01 (0.01-0.08) K/mm3 Meds: Medications Discontinued Medications Generic Name Dose Route Start Last Admin Trade Name Freq PRN Reason Stop Dose Admin Sodium Chloride 1,000 mls @ 999 mls/hr 01/20/18 18:55 01/20/18 19:29 Normal Saline IV 01/20/18 19:55 999 mls/hr ONETIME ONE Administration Morphine Sulfate 2 mg 01/20/18 20:04 01/20/18 20:21 Morphine IVPUSH 01/20/18 20:05 2 mg ONETIME ONE Administration Ondansetron HCl 4 mg 01/20/18 20:04 01/20/18 20:21 Zofran IVPUSH 01/20/18 20:05 4 mg ONETIME ONE Administration - Re-Assessments/Exams Free Text/Narrative Re-Assessment/Exam: 01/20/18 20:[address] 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 For now medicated for pain with morphine 2mg IVP , nausea with zofran 4mg IVP and IVF. Free Text/Narrative Re-Assessment/Exam: 01/20/18 20:43 Dr. Andres to ER to see patient. Review case with him prior to him entering patient room. Free Text/Narrative Re-Assessment/Exam: 01/20/18 21:13 Dr. Andres did see and examine patient, performed pelvic exam. Plans for D&C now. Patient to be discharged to [facility]. Departure - Departure Time of Disposition: 21:13 Disposition: DC/Tfer to [facility] Condition: Good Clinical Impression: Incomplete - Discharge Information Instructions: Miscarriage, [id number] Referrals: Antonio Jamison MD [Primary Care Provider] - Forms: ED Department Discharge Additional Instructions: Patient DC'd to [facility] for plans for D&C with Dr. Dmitry figueroa. OR crew called in per ER staff. - My Orders Last 24 Hours: My Active Orders 01/20/18 21:02 Admission Status [Patient Status] [ADT] Routine Schedule Procedure [COMM] Stat - Assessment/Plan Last 24 Hours: My Active Orders 01/20/18 21:02 Admission Status [Patient Status] [ADT] Routine Schedule Procedure [COMM] Stat
[2018-01-20] MEDS ORDERED: Ondansetron 4 MG/2 ML SDV IVPUSH ONE (20:04)
[2018-01-20] MEDS ORDERED: Morphine 2 MG/ML Syringe IVPUSH ONE (20:04)
[2018-01-20] MEDS ORDERED: Lactated Ringers 1,000 ML IV SCH (21:15)
[2018-01-20] MEDS ORDERED: Doxycycline 100 MG Cap PO ONE (21:17)
--- NOTE | 2018-01-20 21:25 | PCM.HP ---
H&P History of Present Illness - General Date of Service: 01/20/18 Admit Problem/Dx: Admission Diagnosis/Problem Admission Diagnosis/Problem Dilation and curettage Source of Information: Patient History Limitations: Reports: No Limitations - History of Present Illness Initial Comments - Free Text/Narative: Romi Merino is a 22 year old who presents for increased vaginal bleeding in the setting of incomplete . She had been scheduled for a suction D&C this morning with Dr. Jamison and Dr. Andres but this was canceled after she had decreased bleeding on 01/19/2018. She first started to have bleeding for her miscarriage at approximately 9 weeks gestational age on 2017 but she was measuring only approximately 6 weeks gestational age at that time. The bleeding continued over the next several weeks and she had been offered various methods of management including Cytotec vaginally and suction D& C and she desired to have a definitive surgical procedure. On 01/19/2018 her bleeding decreased and she had called the clinic and reported these new changes and the surgery was canceled. She reports that today at approximately 12:00 PM she started having increased amounts of bleeding where she was able to soak a pad in approximately an hour and started to pass small blood clots approximately quarter sized. She has also been having increased amounts of cramping and lower abdominal and back pain. She denies any fevers or chills. Reports that she was having some nausea but this improved with Zofran and she was given in the ER. Patient would like definitive management of her incomplete at this time. Onset of Symptoms: Reports: Today Symptom Onset Time: 12:00 Duration of Symptoms: Reports: Hour(s):, Constant Location: Reports: Abdomen, Back, Pelvis Quality: Reports: Other (Cramping) Severity: Moderate Improves with: Reports: None Worsens with: Reports: Movement Associated Symptoms: Reports: Headaches, Nausea/Vomiting. Denies: Fever/Chills Lower Abdomen Pain Score (Numeric/FACES): 5 - Related Data Allergies/Adverse Reactions: Allergies Allergy/AdvReac Type Severity Reaction Status Date / Time No Known Allergies Allergy Verified 01/19/18 13:22 Home Medications: Home Meds Albuterol [Ventolin HFA] 2 puff INH Q4H PRN 06/03/15 [History] ALPRAZolam [Xanax] 0.5 mg PO BEDTIME 01/07/18 [History] Past Medical History - Past Health History Medical/Surgical History: Denies Medical/Surgical History HEENT History: Reports: None Cardiovascular History: Reports: None Respiratory History: Reports: Asthma, Bronchitis, Recurrent Other Respiratory History: ? 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: , Other (See Below) Other OB/BYN History: SAB, , vaginal discharge, bacterial vaginitis Musculoskeletal History: Reports: None Neurological History: Reports: Other (See Below) Other Neuro History: dizziness Psychiatric History: Reports: None Endocrine/Metabolic History: Reports: None Hematologic History: Reports: None Immunologic History: Reports: None Oncologic (Cancer) History: Reports: None Dermatologic History: Reports: Benign Melanoma, Urticaria Other Dermatologic History: rashes to left leg, stated as ringworm - Infectious Disease History Infectious Disease History: Reports: TB - Past Surgical History Head Surgeries/Procedures: Reports: None HEENT Surgical History: Reports: None Respiratory Surgical History: Reports: None GI Surgical History: Reports: Appendectomy Neurological Surgical History: Reports: None Musculoskeletal Surgical History: Reports: None Oncologic Surgical History: Reports: None Social & Family History - Tobacco Use Smoking Status *Q: Never Smoker - Caffeine Use Caffeine Use: Reports: Coffee, Soda, Tea - Recreational Drug Use Recreational Drug Use: No H&P Review of Systems - Review of Systems: Review Of Systems: See Below General: Denies: Fever, Chills, Malaise, Fatigue HEENT: Reports: Headaches. Denies: Sinus Congestion, Sore Throat, Visual Changes Pulmonary: Denies: Shortness of Breath, Wheezing, Cough Cardiovascular: Denies: Chest Pain, Palpitations, Lightheadedness Gastrointestinal: Reports: Nausea. Denies: Abdominal Pain, Constipation, Diarrhea, Vomiting Genitourinary: Reports: Other (Vaginal bleeding and blood clots). Denies: Dysuria, Frequency, Burning, Pain, Urgency Musculoskeletal: Reports: Back Pain Skin: Denies: Rash, Lesions Psychiatric: Reports: Depression. Denies: Confusion, Anxiety Neurological: Denies: Confusion, Dizziness Hematologic/Lymphatic: Denies: Anemia Exam - Exam Exam: See Below - Vital Signs Vital Signs: Last Vital Signs Temp 37.2 C 01/20/18 18:43 Pulse 75 01/20/18 18:43 Resp 20 01/20/18 18:43 BP 138/90 01/20/18 18:43 Pulse Ox 100 01/20/18 18:43 Weight: 103.873 kg - Exam General: Alert, Oriented HEENT: Conjunctiva Clear, EOMI Neck: Supple, Trachea Midline Lungs: Clear to Auscultation, Normal Respiratory Effort Cardiovascular: Regular Rate, Regular Rhythm GI/Abdominal Exam: Soft, Non-Tender, No Distention. No: Guarding, Rigid, Rebound (Female) Exam: Normal External Exam, Cervical Dilatation (1 cm), Vaginal Bleeding (approximately 15 cc of clot in vaginal vault). No: Cervix Motion Tenderness Back Exam: Normal Inspection, Full Range of Motion Extremities: Normal Inspection, No Pedal Edema Skin: Warm, Dry, Intact Neuro Extensive - Mental Status: Alert, Normal Mood/Affect Psychiatric: Normal Affect, Normal Mood - Patient Data Lab Results Last 24 hrs: Laboratory Results - last 24 hr 01/20/18 Range/Units 19:25 WBC 5.45 (3.98-10.04) K/mm3 RBC 3.79 L (3.98-5.22) M/mm3 Hgb 10.7 L (11.2-15.7) gm/L Hct 32.0 L (34.1-44.9) % MCV 84.4 (79.4-94.8) fl MCH 28.2 (25.6-32.2) pg MCHC 33.4 (32.2-35.5) g/dl RDW Std Deviation 38.5 (36.4-46.3) fL Plt Count 209 (182-369) K/mm3 MPV 10.9 (9.4-12.3) fl Neut % (Auto) 49.3 (34.0-71.1) % Lymph % (Auto) 40.2 (19.3-51.7) % [place] % (Auto) 8.3 (4.7-12.5) % Eos % (Auto) 2.0 (0.7-5.8) Baso % (Auto) 0.2 (0.1-1.2) % Neut # (Auto) 2.69 (1.56-6.13) K/mm3 Lymph # (Auto) 2.19 (1.18-3.74) K/mm3 [place] # (Auto) 0.45 H (0.24-0.36) K/mm3 Eos # (Auto) 0.11 (0.04-0.36) K/mm3 Baso # (Auto) 0.01 (0.01-0.08) K/mm3 Result Diagrams: 01/20/18 19:25 - Problem List (1) Incomplete SNOMED Code(s): 847543580 ICD Code: O03.4 - INCOMPLETE SPONTANEOUS WITHOUT COMPLICATION Status: Acute Current Visit: Yes Problem List Initiated/Reviewed/Updated: Yes Orders Last 24hrs: Active Orders 24 hr Category Date Time Status Admission Status [Patient Status] [ADT] Routine ADT 01/20/18 21:02 Active Patient Status [ADT] Routine ADT 01/20/18 21:14 Active Procedure Prep Instructions [RC] PER UNIT ROUTINE Care 01/20/18 21:16 Active Verify Patient Consent Obtain [RC] PER UNIT ROUTINE Care 01/20/18 21:15 Active Vital Signs [RC] PER UNIT ROUTINE Care 01/20/18 21:15 Active Nothing Per Oral Diet [DIET] Diet 01/20/18 Dinner Active Lactated Ringers [Ringers, Lactated] 1,000 ml Med 01/20/18 21:15 Active IV ASDIRECTED Schedule Procedure [COMM] Stat Oth 01/20/18 21:02 Ordered Sequential Compression Device [OM.PC] Per Unit Routine Oth 01/20/18 21:16 Ordered Medication Orders Lactated Ringer's (Ringers, Lactated) 1,000 mls @ 125 mls/hr IV ASDIRECTED NITIN Assessment/Plan Comment:: 22 year old with incomplete at approximately 6-7 weeks gestational age with worsening bleeding today 1. Incomplete - discussed options with patient including expectant management but this has failed 4 patient previously as she has had this issue since 01/07/2018, medical management with Cytotec and suction D&C. Patient was originally scheduled for a suction D&C this morning but due to decreased bleeding yesterday the procedure was canceled. Patient desired to have definitive management and desired proceed with suction D&C at this time. Consents were reviewed and signed with patient in the emergency department. * Patient is scheduled to go back for suction D&C and is to receive doxycycline 200 mg within one hour prior to surgery. * Patient has been nothing by mouth since 3:30 PM. * IV fluids at 125 mL/h * SCDs for DVT prophylaxis * Anticipate this to be outpatient procedure and patient to be discharged once recovered from anesthesia. Patient will follow-up in 2 weeks or earlier as needed following procedure. Rakesh Andres M.D. 9:32 PM 01/11/2018
--- NOTE | 2018-01-20 21:31 | PCM.PREANE ---
Preanesthetic Assessment - Procedure Proposed Procedure: suction d and c - Anesthesia/Transfusion/Family Hx Anesthesia History: Prior Anesthesia Without Reaction Family History of Anesthesia Reaction: No Transfusion History: No Prior Transfusion(s) Intubation History: Unknown - Review of Systems General: No Symptoms Pulmonary: No Symptoms Cardiovascular: No Symptoms Gastrointestinal: Abdominal Pain (toda), Nausea (gone now) Neurological: No Symptoms Other: Reports: None, Depression, Anxiety - Physical Assessment NPO Status Date: 01/20/18 NPO Status Time: 15:30 O2 Sat by Pulse Oximetry: 98 Respiratory Rate: 20 Blood Pressure: 127/81 Vital Signs: Last Vital Signs Temp 98.9 F 01/20/18 18:43 Pulse 75 01/20/18 18:43 Resp 20 01/20/18 18:43 BP 138/90 01/20/18 18:43 Pulse Ox 100 01/20/18 18:43 Height: 5 ft 7 in Weight: 103.873 kg ASA Class: 2E Mental Status: Alert & Oriented x3 Airway Class: Mallampati = 1 Dentition: Reports: Normal Dentition Thyro-Mental Finger Breadths: 3 Mouth Opening Finger Breadths: 3 ROM/Head Extension: Full Lungs: Clear to Auscultation, Normal Respiratory Effort Cardiovascular: Regular Rate, Regular Rhythm - Lab Values: Laboratory Last Values WBC 5.45 K/mm3 (3.98-10.04) 01/20/18 19:25 RBC 3.79 M/mm3 (3.98-5.22) L 01/20/18 19:25 Hgb 10.7 gm/L (11.2-15.7) L 01/20/18 19:25 Hct 32.0 % (34.1-44.9) L 01/20/18 19:25 MCV 84.4 fl (79.4-94.8) 01/20/18 19:25 MCH 28.2 pg (25.6-32.2) 01/20/18 19:25 MCHC 33.4 g/dl (32.2-35.5) 01/20/18 19:25 RDW Std Deviation 38.5 fL (36.4-46.3) 01/20/18 19:25 Plt Count 209 K/mm3 (182-369) 01/20/18 19:25 MPV 10.9 fl (9.4-12.3) 01/20/18 19:25 Neut % (Auto) 49.3 % (34.0-71.1) 01/20/18 19:25 Lymph % (Auto) 40.2 % (19.3-51.7) 01/20/18 19:25 [place] % (Auto) 8.3 % (4.7-12.5) 01/20/18 19:25 Eos % (Auto) 2.0 (0.7-5.8) 01/20/18 19:25 Baso % (Auto) 0.2 % (0.1-1.2) 01/20/18 19:25 Neut # (Auto) 2.69 K/mm3 (1.56-6.13) 01/20/18 19:25 Lymph # (Auto) 2.19 K/mm3 (1.18-3.74) 01/20/18 19:25 [place] # (Auto) 0.45 K/mm3 (0.24-0.36) H 01/20/18 19:25 Eos # (Auto) 0.11 K/mm3 (0.04-0.36) 01/20/18 19:25 Baso # (Auto) 0.01 K/mm3 (0.01-0.08) 01/20/18 19:25 - Allergies Allergies/Adverse Reactions: Allergies Allergy/AdvReac Type Severity Reaction Status Date / Time No Known Allergies Allergy Verified 01/19/18 13:22 - Blood Blood Available: No - Acknowledgements Anesthesia Type Planned: General Anesthesia Pt an Appropriate Candidate for the Planned Anesthesia: Yes Alternatives and Risks of Anesthesia Discussed w Pt/Guardian: Yes Pt/Guardian Understands and Agrees with Anesthesia Plan: Yes PreAnesthesia Questionnaire - Past Health History Medical/Surgical History: Denies Medical/Surgical History HEENT History: Reports: None Cardiovascular History: Reports: None Respiratory History: Reports: Asthma, Bronchitis, Recurrent Other Respiratory History: ? 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) : 3 Para: 2 Other OB/BYN History: SAB, , vaginal discharge, bacterial vaginitis Musculoskeletal History: Reports: None Neurological History: Reports: Other (See Below) Psychiatric History: Reports: None, Anxiety (takes prn meds), Depression Endocrine/Metabolic History: Reports: None, Obesity/BMI 30+ Hematologic History: Reports: None Immunologic History: Reports: None Oncologic (Cancer) History: Reports: None Dermatologic History: Reports: Benign Melanoma, Urticaria Other Dermatologic History: rashes to left leg, stated as ringworm - Infectious Disease History Infectious Disease History: Reports: TB - Past Surgical History Head Surgeries/Procedures: Reports: None HEENT Surgical History: Reports: None, Other (See Below) (cyst behind ear) Respiratory Surgical History: Reports: None GI Surgical History: Reports: Appendectomy Neurological Surgical History: Reports: None Musculoskeletal Surgical History: Reports: None Oncologic Surgical History: Reports: None - SUBSTANCE USE Smoking Status *Q: Former Smoker (quit 3 years ago) Tobacco Use Within Last Twelve Months: No Second Hand Smoke Exposure: No Days Per Week of Alcohol Use: 0 Recreational Drug Use History: No - HOME MEDS Home Medications: Home Meds Albuterol [Ventolin HFA] 2 puff INH Q4H PRN 06/03/15 [History] ALPRAZolam [Xanax] 0.5 mg PO BEDTIME 01/07/18 [History] - CURRENT (IN HOUSE) MEDS Current Meds: Current Medications Lactated Ringer's (Ringers, Lactated) 1,000 mls @ 125 mls/hr IV ASDIRECTED NITIN Discontinued Medications Doxycycline Hyclate (Vibramycin) 200 mg PO ONETIME ONE Stop: 01/20/18 21:18 Sodium Chloride (Normal Saline) 1,000 mls @ 999 mls/hr IV ONETIME ONE Stop: 01/20/18 19:55 Last Admin: 01/20/18 19:29 Dose: 999 mls/hr Morphine Sulfate (Morphine) 2 mg IVPUSH ONETIME ONE Stop: 01/20/18 20:05 Last Admin: 01/20/18 20:21 Dose: 2 mg Ondansetron HCl (Zofran) 4 mg IVPUSH ONETIME ONE Stop: 01/20/18 20:05 Last Admin: 01/20/18 20:21 Dose: 4 mg
[2018-01-20] MEDS ORDERED: HYDROmorphone 0.5 MG/0.5 ML Syringe IVPUSH PRN (21:59)
[2018-01-20] MEDS ORDERED: Ondansetron 4 MG/2 ML SDV IVPUSH PRN (21:59)
[2018-01-20] MEDS ORDERED: Meperidine PF 50 MG/ML Syringe IVPUSH PRN (21:59)
[2018-01-20] MEDS ORDERED: fentaNYL 100 MCG/2 ML SDV IVPUSH PRN (21:59)
[2018-01-20] MEDS ORDERED: Methylergonovine 0.2 MG/1 ML Amp ONE (22:03)
--- NOTE | 2018-01-20 22:20 | PCM.POSTAN ---
POST ANESTHESIA ASSESSMENT - MENTAL STATUS Mental Status: Alert, Oriented - VITAL SIGNS Pulse Rate: 96 SaO2: 100 Resp Rate: 17 Blood Pressure: 144/86 Temperature: 98.2 F - RESPIRATORY Respiratory Status: Respiratory Rate WNL, Airway Patent, O2 Saturation Stable, Supplemental Oxygen - CARDIOVASCULAR CV Status: Pulse Rate WNL, Blood Pressure Stable - GASTROINTESTINAL GI Status: No Symptoms - PAIN Pain Score: 0 (denies) - POST OP HYDRATION Hydration Status: Adequate & Stable - OBSERVATIONS Free Text/Narrative:: occ cough
[2018-01-20] MEDS ORDERED: Ketorolac 30 MG/ML SDV IVPUSH ONE (22:21)
--- NOTE | 2018-01-20 22:24 | PCM.OPNOTE ---
- General Post-Op/Procedure Note Date of Surgery/Procedure: 01/20/18 Operative Procedure(s): Suction dilation and curettage Findings: Cervix with continued bleeding and open cervical os on exam following incomplete Pre Op Diagnosis: Incomplete Post-Op Diagnosis: Same status post suction dilation and curettage Anesthesia Technique: General ET Tube Primary Surgeon: Rakesh Andres Anesthesia Provider: Olivia Khalil Pathology: Products of conception Fluid Replacement, Intraop: 800 Output, Urine Amount: 0 (Voided prior to procedure) EBL in mLs: 5 Complications: None Condition: Good Free Text/Narrative:: Duration of procedure: 10 minutes Procedure in Detail: Patient was counseled on risks, benefits and alternatives of the procedure and consents were signed prior to going back to the OR. She was given 200 mg of doxycycline for antibiotic prophylaxis. She was taken back to the OR and given general anesthesia with endotracheal tube that was placed without difficulty. She was placed in dorsal lithotomy position using Yellofin stirrups. She was prepped and draped in a normal sterile fashion. A sterile speculum was placed in the vagina and the cervix was visualized. The anterior lip of the cervix was grasped with a single toothed tenaculum. The cervix was serially dilated to a 21 Azeri Erazo dilator. The vacuum was tested and reached an appropriate suction level. A 7 mm suction curettage was then placed into the uterine cavity and suction applied. The uterine cavity was suctioned circumferentially until a good cri was felt in all directions. The tissue that was removed was sent to pathology. The procedure was complete at this time and the tenaculum was removed from the cervix and good hemostasis was noted from the tenaculum sites. All instruments were removed from the vagina. All needle and sponge counts were correct x 2. The patient was awoken and taken back to the recovery room in stable condition. The patient will be discharged home when she is ambulating, tolerating PO, pain is well controlled with PO medications and she is voiding normally. She will follow up with Dr. Andres in the clinic within the next 2 weeks. She was given strict precautions to return if she is having severe vaginal bleeding of more than 1 pad per hour for three hours, uncontrollable pain/nausea/vomiting or if she is having a fever greater than 100.4 F. Rakesh Andres MD 11:11 PM 01/20/2018
[2018-01-20] MEDS ORDERED: Albuterol 0.083% 2.5 MG/3 ML Neb Soln NEB ONE (22:49)
--- NOTE | 2018-01-20 22:49 | PCM48HPAN ---
Post Anesthesia Note - EVALUATION WITHIN 48HRS OF ANESTHETIC Vital Signs in Normal Range: Yes Patient Participated in Evaluation: Yes Respiratory Function Stable: Yes Airway Patent: Yes Cardiovascular Function Stable: Yes Hydration Status Stable: Yes Pain Control Satisfactory: Yes Nausea and Vomiting Control Satisfactory: Yes Mental Status Recovered: Yes Pulse Rate: 96 Resp Rate: 13 Temperature: 98.2 F Blood Pressure: 144/86 - COMMENTS/OBSERVATIONS Free Text/Narrative:: Patient complained of some chest heaviness after in pacu awhile. Denies pain. Occ cough. While waiting for neb treatment patient states she feels better. Vitals stable. Chest clear.
[2018-01-21 00:09] VITALS: BP 130/76
[2018-01-21] MEDS ORDERED: Albuterol 0.5% 2.5 MG/0.5 ML Neb Soln NEB SCH (06:00)
== END 2018-01-20 23:58 | disposition home or self-care (01) ==
LOC: JD.ED 18:34 → SUPCPDRO 18:34 → JD.SDS 21:13
PROVIDERS: ATTEND Obstetrics & Gynecology
DX: O03.4 Incomplete spontaneous abortion without complication (principal); J45.909 Unspecified asthma, uncomplicated; E66.9 Obesity, unspecified; Z68.36 Body mass index [BMI] 36.0-36.9, adult; F41.9 Anxiety disorder, unspecified; F32.9 Major depressive disorder, single episode, unspecified; Z87.891 Personal history of nicotine dependence; Z79.899 Other long term (current) drug therapy
CPT/HCPCS: 36415; 59812; 85025; 94640; 96361; 96374; 96375; 99285; A9270; J2210; J2270; J2405; J7040; 01965

== ENCOUNTER 2019-11-25 17:51 | Emergency (ER) | payer MEDICAID, OTHER ==
[2019-11-25 18:12] VITALS: BP 130/84; PULSE 65
--- NOTE | 2019-11-25 18:44 | EDM.PDOC ---
ED HPI GENERAL MEDICAL PROBLEM - General Chief Complaint: Skin Complaint Stated Complaint: ALLERGIC RX ON HAND Time Seen by Provider: 11/25/19 18:10 Source of Information: Reports: Patient - History of Present Illness INITIAL COMMENTS - FREE TEXT/NARRATIVE: Romi Merino a 24 y/o-year-old female who presents the emergency room chief complaints of left index finger pain and irritation. Patient reports that she is recently been using bleach water at work since the -19. Loose over the past couple days that her finger has been swelling and the skin has peeled off of her finger. She denies any fever, chills or other symptoms. Concerned that she is having a allergic reaction. Onset Date: 11/23/19 Onset Time: 09:00 Duration: Getting Worse Location: Reports: Upper Extremity, Left (left ring finger) Quality: Reports: Ache Severity: Mild Improves with: Reports: None Worsens with: Reports: None Associated Symptoms: Denies: Fever/Chills Left Finger-Ring Pain Score (Numeric/FACES): 3 - Related Data Allergies Allergy/AdvReac Type Severity Reaction Status Date / Time No Known Allergies Allergy Verified 11/25/19 18:10 Home Meds: Home Meds Albuterol [Ventolin HFA] 2 puff INH Q4H PRN 06/03/15 [History] Loratadine [Claritin] 10 mg PO DAILY 11/25/19 [History] cephALEXin [Keflex] 500 mg PO Q8H #21 cap 11/25/19 [Rx] Past Medical History - Past Health History Medical/Surgical History: Denies Medical/Surgical History HEENT History: Reports: None Cardiovascular History: Reports: None Respiratory History: Reports: Asthma, Bronchitis, Recurrent Other Respiratory History: allergies Gastrointestinal History: Reports: Helicobacter Pylori Genitourinary History: Reports: Other (See Below) Other Genitourinary History: dysuria 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 History: SAB, , vaginal discharge, bacterial vaginitis Musculoskeletal History: Reports: None Neurological History: Reports: Other (See Below) Other Neuro History: dizziness Psychiatric History: Reports: None Endocrine/Metabolic History: Reports: None Hematologic History: Reports: None Immunologic History: Reports: None Oncologic (Cancer) History: Reports: None Dermatologic History: Reports: Benign Melanoma, Urticaria Other Dermatologic History: rashes to left leg, stated as ringworm - Infectious Disease History Infectious Disease History: Reports: TB - Past Surgical History Head Surgeries/Procedures: Reports: None HEENT Surgical History: Reports: None Respiratory Surgical History: Reports: None GI Surgical History: Reports: Appendectomy Female Surgical History: Reports: D&C Neurological Surgical History: Reports: None Musculoskeletal Surgical History: Reports: None Oncologic Surgical History: Reports: None Social & Family History - Tobacco Use Smoking Status *Q: Never Smoker - Caffeine Use Caffeine Use: Reports: Coffee, Soda - Recreational Drug Use Recreational Drug Use: No ED ROS GENERAL - Review of Systems Review Of Systems: See Below Constitutional: Denies: Fever, Chills HEENT: Reports: Glasses Respiratory: Reports: No Symptoms Cardiovascular: Reports: No Symptoms Endocrine: Reports: No Symptoms GI/Abdominal: Reports: No Symptoms : Reports: No Symptoms Musculoskeletal: Reports: No Symptoms Skin: Reports: Rash, Other (Left index finger cellulitis) Neurological: Reports: No Symptoms Psychiatric: Reports: No Symptoms Hematologic/Lymphatic: Reports: No Symptoms Immunologic: Reports: No Symptoms ED EXAM, SKIN/RASH Exam: See Below Exam Limited By: No Limitations General Appearance: Alert, WD/WN, No Apparent Distress Peripheral Pulses: 4+: Radial (L) Neurological: Alert, Oriented Skin: Warm, Dry, Intact, Erythema, Other (left ring finger erythematous with skin abrasion noted, minimal swelling, neurovascularly intact. ) Lymphatic: No Adenopathy Course - Vital Signs Text/Narrative:: Romi Merino is a 24 y/o female resents the emergency room chief complaints of left ring finger irritation and swelling. Denies any fever, chills, pain or other symptoms. She reports that she has been using bleach water at work and since then has noticed a new increased irritation in her hand. Her presentation is consistent with cellulitis. Discharged home with Keflex for outpatient antibiotic therapy. I instructed patient to apply bacitracin ointment to the area and not to place her hand in beach water. Instructed patient to follow-up with the PCP. Instructed patient to return to the emergency room for any new acute worsening symptoms. Patient verbalized understanding and is, plan for discharge. Last Recorded V/S: Last Vital Signs Temp 98.3 F 11/25/19 18:07 Pulse 65 11/25/19 18:07 Resp 16 11/25/19 18:07 BP 130/84 11/25/19 18:07 Pulse Ox 96 11/25/19 18:07 Departure - Departure Time of Disposition: 18:44 Disposition: Home, Self-Care 01 Clinical Impression: Contact dermatitis - Discharge Information Prescriptions: cephALEXin [Keflex] 500 mg PO Q8H #21 cap Instructions: Contact Dermatitis, [id number] Referrals: Kandace Wilkins PA-C [Primary Care Provider] - Additional Instructions: You were seen and evaluated today for left ring finger irritation and swelling. You have a form of cellulitis which is a infection of the skin. I recommend that you put bacitracin or and form a antibiotic ointment on your finger. You have been prescribed Keflex for outpatient antibiotic therapy. Wash your hands frequently do not put your hands in bleach water. Follow-up with your PCP. Return to the emergency room for any new or acute worsening symptoms. Sepsis Event Note - Evaluation Sepsis Screening Result: No Definite Risk - Focused Exam Vital Signs: Vital Signs Temp Pulse Resp BP Pulse Ox 11/25/19 18:07 98.3 F 65 16 130/84 96 Date Exam was Performed: 11/25/19 Time Exam was Performed: 18:34
== END 2019-11-25 19:06 | disposition home or self-care (01) ==
LOC: JD.ED 17:51
DX: S60.415A Abrasion of left ring finger, initial encounter (principal); L25.9 Unspecified contact dermatitis, unspecified cause; J45.909 Unspecified asthma, uncomplicated; Z79.899 Other long term (current) drug therapy; X58.XXXA Exposure to other specified factors, initial encounter
CPT/HCPCS: 99282; 99283

== ENCOUNTER 2020-12-17 02:52 | Inpatient (IN) | payer MEDICAID ==
[~2020-12-17 02:52] MED LIST changes: +Bupivacaine 0.25% 10 ML SDV ONE; -Diatrizoate Meglumine/Diatrizoate Sodium 37% 120 ML Bottle PO ONE; -Iopamidol 612 MG/ML 150 ML Bottle IVPUSH ONE; +Lidocaine 1.5% with EPINEPHrine 1:200,000 5 ML Amp ONE; -Sodium Chloride 0.9% 10 ML Syringe FLUSH PRN
[2020-12-17] MEDS ORDERED: Nalbuphine 10 MG/1 ML Vial IVPUSH PRN (03:03)
[2020-12-17] MEDS ORDERED: Acetaminophen 325 MG Tab PO PRN ×2 (03:03→14:14)
[2020-12-17] MEDS ORDERED: Lidocaine 1% 50 ML MDV INJECT ONE (03:03)
[2020-12-17] MEDS ORDERED: Sodium Chloride 0.9% 10 ML Syringe FLUSH PRN (03:03)
[2020-12-17] MEDS: Lactated Ringers 1,000 ML IV SCH ×2 (04:53→09:48)
[2020-12-17] MEDS: Oxytocin/Lactated Ringers 10 UNIT/1,000 ML BAG IV SCH ×2 (04:53→13:16)
--- NOTE | 2020-12-17 06:42 | PCM.LDHP ---
L&D History of Present Illness - General Date of Service: 12/17/20 Admit Problem/Dx: Patient Status Order with Admit Dx/Problem 12/17/20 03:06 Patient Status [ADT] Routine Admission Diagnosis/Problem Admission Diagnosis/Problem 12/17/20 06:29 Romi is a 24-year old 4 para 0-2-1-2 female at 37-2/7 weeks gestational age with an ELKIN of 01/05/2021 who was admitted for medical induction of labor because of hypertension in . Source of Information: Patient History Limitations: Reports: No Limitations - History of Present Illness Introduction:: Romi is a 24-year old 4 para 0-2-1-2 female at 37-2/7 weeks gestational age with an ELKIN of 01/05/2021 who was admitted for medical induction of labor because of hypertension in . The process of induction of labor, its risks, benefits, limitations, follow-up and alternatives of care are discussed in detail with the patient. She appears understand and wishes to proceed. 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 Menarche age 12. Cycles q. 20 days. LMP 03/17/2020, relatively certain. ELKIN of 01/05/2021 based upon a 6-2/7-week ultrasound done on 05/14/2020 and supported by a second ultrasound done on 08/19/2020. Patient denies any abnormal Pap smears or STIs. She has had 1 miscarriage December 28, 2017 that was treated with dilation and suction curettage. She has had 2 vaginal deliveries: 1. Male born 09/30/2012 at 32 weeks gestational age7 pounds 5 [facility] with severe featureschild's name is Charli 2. Female born 03/28/2014 at 32 weeks gestational age7 pounds 9 [facility] with severe featureschild's name is Stacie course: Patient was first seen in this at 6-2/7 weeks gestational age. She was seen on a very regular basis throughout the . Her vital signs have been stable throughout the up until approximately 35 weeks at which time they were borderline high. They were monitored at home and in clinic. No therapy was necessary as they did not reach threshold levels. Patient has been on a baby aspirin throughout the . She desires a natural labor. Group B strep is negative. She is Rh- and received RhoGam on 10/14/2020. She has had mild anemia in . She declined genetic testing during this . She declined influenza vaccine. She plans to breast-feed. She has history of enlarged thyroid. She did receive her Tdap on 10/14/2020. She is rubella immune. Patient has asthma and has been on medications throughout much of the for this. Laboratory testing in blood is O- with negative antibody screen. First hemoglobin was 12.1 g/dL and platelets are 213,000. She is rubella immune. RPR is nonreactive. Urine culture is negative. Hepatitis B surface antigen and HIV testing were negative. Chlamydia and gonorrhea tests were negative. Second trimester laboratory testing showed a hemoglobin of 11.4 g/dL. Patient was started on ferrous sulfate 325 mg p.o. daily at that time. Platelets at that time were 215,000. 1 hour GTT was elevated at 171 mg/dL. Her 3-hour glucose tolerance test was normal with a fasting blood sugar of 83, a 1 hour sugar of 160, a 2-hour sugar 126 and a 3-hour sugar of 85. CBC recheck on 11/26/2020 showed hemoglobin 11.3 g/dL and platelets at 212,000. She is group B strep negative. Allergies: None Medications: 1. Baby aspirin 81 mg daily 2. Ferrous sulfate 325 mg p.o. daily 3. Montelukast sodium 10 mg orally daily 4. Triamcinolone acetonide 0.1% external cream as needed for eczema 5. Albuterol sulfate inhaler 1 to 2 puffs every 6 hours as neededuse sparingly 6. vitamins 1 daily Last medical history: 1. Miscarriage first trimester 2018treated with D&C 2. x2both complicated by preeclampsia with severe [id number] and 2013 3. Asthma on medication. 4. History of H. pylori 2017treated Past surgical history: 1. D&C 2018 for miscarriage 2. Appendectomy 2016 3. Benign cyst removed from behind her left ear. Family history: Mother with history of hypertension diabetes type 2. Father with history of stroke. No anesthesia, bleeding, blood clotting problems noted in the family. Social history: Patient is single. She lives in [place], [place]. She does not use any significant also alcohol, drugs or tobacco. Review of systems: In general patient has no complaints. Baby has been active. Skin: Negative Lungs: No infectious symptoms or shortness of breath Cardiovascular: No chest pain or exercise intolerance Breasts: No lumps, changes in size, pain, dimpling, discharge or axillary or supraclavicular concerns. GI: Negative : changes reported Musculoskeletal: Negative Neurological: Negative Physical exam: In general the patient is well-developed, well-nourished, pleasant female of stated age in no acute distress. On last evaluation clinic her blood pressure was 130/80 and on recheck 132/74. Weight was 286.6 pounds. Pregravid weight was 260.2 pounds. Pregravid body mass index was 39.8 and height is 5 feet 7 inches. Skin is warm dry without lesions. HEENT, neck and back within normal limits. Lungs are clear with good breath sounds in all lung anderson. Cardiovascular exam shows regular and rhythm without murmurs. Abdomen gravid with last fundal height at 39.5 cm.. Genital per s digital exam on last evaluation clinic shows cervix to be 3 cm, 80% effaced, -3, soft, bag lee intact, mid position Extremities and neurological exam are grossly within normal limits. - Related Data Allergies/Adverse Reactions: Allergies Allergy/AdvReac Type Severity Reaction Status Date / Time latex Allergy Burning Verified 12/17/20 04:43 Home Medications: Home Meds Aspirin [Adult Low Dose Aspirin EC] 81 mg PO DAILY 12/17/20 [History] Cetirizine [ZyrTEC] 1 tab PO DAILY PRN 12/17/20 [History] Ferrous Sulfate [Iron] 1 tab PO DAILY 12/17/20 [History] Montelukast [Singulair] 1 tab PO DAILY PRN 12/17/20 [History] Pnv No.95/Ferrous Fum/Folic AC [ Vitamin Tablet] 1 tab PO DAILY 12/17/20 [History] Past Medical History Other HEENT History: Seasonal allergies Respiratory History: Reports: Asthma 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 True cyst removed from left ear 2009 GI Surgical History: Reports: Appendectomy Social & Family History - Family History Family Medical History: No Pertinent Family History - Tobacco Use Tobacco Use Status *Q: Never Tobacco User Second Hand Smoke Exposure: No - Recreational Drug Use Recreational Drug Use: No H&P Review of Systems - Review of Systems: Review Of Systems: See Below L&D Exam - Exam Exam: See Below - Vital Signs Vital Signs: Last Vital Signs Temp 37.1 C 12/17/20 03:15 Pulse 98 12/17/20 03:15 Resp 16 12/17/20 03:15 BP 141/92 H 12/17/20 03:15 Pulse Ox 98 12/17/20 03:15 Weight: 132.177 kg - Patient Data Lab Results Last 24 hrs: Laboratory Results - last 24 hr 12/17/20 12/17/20 12/17/20 Range/Units 03:20 03:20 03:20 WBC 7.89 (3.98-10.04) K/mm3 RBC 4.22 (3.98-5.22) M/mm3 Hgb 11.8 (11.2-15.7) gm/dl Hct 36.0 (34.1-44.9) % MCV 85.3 (79.4-94.8) fl MCH 28.0 (25.6-32.2) pg MCHC 32.8 (32.2-35.5) g/dl RDW Std Deviation 44.8 (36.4-46.3) fL Plt Count 189 (182-369) K/mm3 MPV 10.5 (9.4-12.3) fl Neut % (Auto) 62.6 (34.0-71.1) % Lymph % (Auto) 27.4 (19.3-51.7) % [place] % (Auto) 8.1 (4.7-12.5) % Eos % (Auto) 1.5 (0.7-5.8) Baso % (Auto) 0.1 (0.1-1.2) % Neut # (Auto) 4.94 (1.56-6.13) K/mm3 Lymph # (Auto) 2.16 (1.18-3.74) K/mm3 [place] # (Auto) 0.64 H (0.24-0.36) K/mm3 Eos # (Auto) 0.12 (0.04-0.36) K/mm3 Baso # (Auto) 0.01 (0.01-0.08) K/mm3 SARS-CoV-2 RNA (MAYE) Negative (NEGATIVE) Blood Type O NEGATIVE Gel Antibody Screen Positive Result Diagrams: 12/17/20 03:20 - Problem List (1) History of pre-eclampsia in prior , currently SNOMED Code(s): 764785335939675, 329216426401506 ICD Code: O09.299 - SUPRVSN OF PREG W POOR REPRODCTV OR OBSTET HISTORY, UNSP TRI Status: Acute Current Visit: Yes (2) Hypertension affecting in third trimester SNOMED Code(s): 30389384707322, 91286856871040 ICD Code: O16.3 - UNSPECIFIED MATERNAL HYPERTENSION, THIRD TRIMESTER Status: Acute Current Visit: Yes (3) 37 weeks gestation of SNOMED Code(s): 12404614 ICD Code: Z3A.37 - 37 WEEKS GESTATION OF Status: Acute Current Visit: Yes (4) History of delivery, currently in third trimester SNOMED Code(s): 62868340, 13942286 ICD Code: O09.893 - SUPERVISION OF OTHER HIGH RISK PREGNANCIES, THIRD TRIMEST ER Status: Acute Current Visit: Yes (5) Obesity (BMI 30-39.9) SNOMED Code(s): 532770646, 664038339 ICD Code: E66.9 - OBESITY, UNSPECIFIED Status: Acute Current Visit: Yes Problem List Initiated/Reviewed/Updated: Yes Orders Last 24hrs: Active Orders 24 hr Category Date Time Status Patient Status [ADT] Routine ADT 12/17/20 03:06 Active Activity as Tolerated [RC] PFP Care 12/17/20 03:06 Active Communication Order [RC] ASDIRECTED Care 12/17/20 03:06 Active Heart Tones [RC] ASDIRECTED Care 12/17/20 03:06 Active Notify Provider [RC] PFP Care 12/17/20 03:06 Active Notify Provider [RC] PRN Care 12/17/20 03:06 Active Peripheral IV Care [RC] . DIRECTED Care 12/17/20 03:06 Active Vital Signs [RC] PER UNIT ROUTINE Care 12/17/20 03:06 Active Regular Diet [DIET] Diet 12/17/20 Breakfast Active ANTIBODY IDENTIFICATION [BBK] Stat Lab 12/17/20 03:20 Results HEP C VIRUS AB [REF] Stat Lab 12/17/20 03:20 Received PATIENT RETYPE [BBK] Routine Lab 12/17/20 04:20 Ordered RAPID PLASMA REAGIN,RPR [CHEM] Routine Lab 12/17/20 03:20 Received TYPE AND SCREEN [BBK] Stat Lab 12/17/20 03:20 Results Acetaminophen [TylenoL] Med 12/17/20 03:03 Active 650 mg PO Q4H PRN Lactated Ringers [Ringers, Lactated] 1,000 ml Med 12/17/20 03:15 Active IV ASDIRECTED Nalbuphine [Nubain] Med 12/17/20 03:03 Active 10 mg IVPUSH Q2H PRN Oxytocin/Lactated Ringers [Pitocin in LR 10 Units/1,000 Med 12/17/20 03:15 Active ML] 10 unit in 1,000 ml IV TITRATE Sodium Chloride 0.9% [Saline Flush] Med 12/17/20 03:03 Active 10 ml FLUSH ASDIRECTED PRN Electronic Heart Tones Ext w TOCO [WOMSER] Oth 12/17/20 03:06 Ordered Routine Electronic Heart Tones Internal [WOMSER] Per Unit Oth 12/17/20 03:06 Ordered Routine Peripheral IV Insertion Adult [OM.PC] Routine Oth 12/17/20 03:06 Ordered Resuscitation Status Routine Resus Stat 12/17/20 03:03 Ordered Medication Orders Acetaminophen (Acetaminophen 325 Mg Tab) 650 mg PO Q4H PRN PRN Reason: Pain (Mild 1-3) and fever Oxytocin/Lactated Ringer's (Pitocin In Lr 10 Units/1,000 Ml) 10 unit in 1,000 mls @ 12 mls/hr IV TITRATE NITIN; Protocol Last Titration: 12/17/20 05:50 Dose: 6 munits/min, 36 mls/hr Documented by: Titration: 12/17/20 05:15 Dose: 4 munits/min, 24 mls/hr Documented by: Admin: 12/17/20 04:53 Dose: 2 munits/min, 12 mls/hr Documented by: GREG Lactated Ringer's (Ringers, Lactated) 1,000 mls @ 100 mls/hr IV ASDIRECTED [facility] Last Admin: 12/17/20 04:53 Dose: 100 mls/hr Documented by: GREG Nalbuphine HCl (Nalbuphine 10 Mg/1 Ml Vial) 10 mg IVPUSH Q2H PRN PRN Reason: Pain Sodium Chloride (Sodium Chloride 0.9% 10 Ml Syringe) 10 ml FLUSH ASDIRECTED PRN PRN Reason: Keep Vein Open Assessment/Plan Comment:: 1.Romi is a 24-year old 4 para 0-2-1-2 female at 37-2/7 weeks gestational age with an ELKIN of 01/05/2021 who was admitted for medical induction of labor because of hypertension in . 2. Group B strep negative 3. Patient desires natural labor 4. Patient plans to breast-feed 5. History of asthma, obesity, previous 2 pregnancies with preeclampsia with severe features, Rh- blood Plan: 1. Induction with Pitocin initially followed by AROM. Procedure, risk, benefits discussed with patient. She appears to understand and wishes to proceed 2. Routine admission labs Covid19 testing, RPR and CBC 3. Epidural available if patient so desires 4. Support breast-feeding decision 5. Monitor blood pressures closely in labor. 6. Rh immunoglobulin therapy as indicated after delivery based on baby's blood Rh. 7. Continue with asthma therapy as at present
[2020-12-17] MEDS ORDERED: fentaNYL 100 MCG/2 ML SDV EPIDUR PRN (09:04)
[2020-12-17] MEDS ORDERED: Bupivacaine/fentaNYL/NS 100 ML Bag EPIDUR PRN (09:04)
[2020-12-17] MEDS ORDERED: ePHEDrine 50 MG/ML SDV IVPUSH PRN (09:04)
[2020-12-17] MEDS ORDERED: diphenhydrAMINE 50 MG/ML SDV IVPUSH PRN (09:04)
--- NOTE | 2020-12-17 09:29 | PCM.PREANE ---
Preanesthetic Assessment - Procedure Proposed Procedure: Labor epidural - Anesthesia/Transfusion/Family Hx Anesthesia History: Prior Anesthesia Without Reaction Family History of Anesthesia Reaction: No Transfusion History: No Prior Transfusion(s) - Review of Systems General: Fatigue Pulmonary: No Symptoms Cardiovascular: No Symptoms Gastrointestinal: Abdominal Pain (Labor pain) Neurological: No Symptoms Other: Reports: None - Physical Assessment Vital Signs: Last Vital Signs Temp 98.8 F 12/17/20 03:15 Pulse 98 12/17/20 03:15 Resp 16 12/17/20 03:15 BP 141/92 H 12/17/20 03:15 Pulse Ox 98 12/17/20 03:15 Height: 1.7 m Weight: 132.177 kg ASA Class: 3 Mental Status: Alert & Oriented x3 Airway Class: Mallampati = 2 Thyro-Mental Finger Breadths: 3 Mouth Opening Finger Breadths: 3 ROM/Head Extension: Full Lungs: Clear to Auscultation, Normal Respiratory Effort Cardiovascular: Regular Rate, Regular Rhythm - Lab Values: Laboratory Last Values WBC 7.89 K/mm3 (3.98-10.04) 12/17/20 03:20 RBC 4.22 M/mm3 (3.98-5.22) 12/17/20 03:20 Hgb 11.8 gm/dl (11.2-15.7) 12/17/20 03:20 Hct 36.0 % (34.1-44.9) 12/17/20 03:20 MCV 85.3 fl (79.4-94.8) 12/17/20 03:20 MCH 28.0 pg (25.6-32.2) 12/17/20 03:20 MCHC 32.8 g/dl (32.2-35.5) 12/17/20 03:20 RDW Std Deviation 44.8 fL (36.4-46.3) 12/17/20 03:20 Plt Count 189 K/mm3 (182-369) 12/17/20 03:20 MPV 10.5 fl (9.4-12.3) 12/17/20 03:20 Neut % (Auto) 62.6 % (34.0-71.1) 12/17/20 03:20 Lymph % (Auto) 27.4 % (19.3-51.7) 12/17/20 03:20 [place] % (Auto) 8.1 % (4.7-12.5) 12/17/20 03:20 Eos % (Auto) 1.5 (0.7-5.8) 12/17/20 03:20 Baso % (Auto) 0.1 % (0.1-1.2) 12/17/20 03:20 Neut # (Auto) 4.94 K/mm3 (1.56-6.13) 12/17/20 03:20 Lymph # (Auto) 2.16 K/mm3 (1.18-3.74) 12/17/20 03:20 [place] # (Auto) 0.64 K/mm3 (0.24-0.36) H 12/17/20 03:20 Eos # (Auto) 0.12 K/mm3 (0.04-0.36) 12/17/20 03:20 Baso # (Auto) 0.01 K/mm3 (0.01-0.08) 12/17/20 03:20 SARS-CoV-2 RNA (MAYE) Negative (NEGATIVE) 12/17/20 03:20 Blood Type O NEGATIVE 12/17/20 03:20 Gel Antibody Screen Positive 12/17/20 03:20 - Allergies Allergies/Adverse Reactions: Allergies Allergy/AdvReac Type Severity Reaction Status Date / Time latex Allergy Burning Verified 12/17/20 04:43 - Anesthesia Plan Pre-Op Medication Ordered: None - Acknowledgements Anesthesia Type Planned: Epidural Pt an Appropriate Candidate for the Planned Anesthesia: Yes Alternatives and Risks of Anesthesia Discussed w Pt/Guardian: Yes Pt/Guardian Understands and Agrees with Anesthesia Plan: Yes PreAnesthesia Questionnaire Other HEENT History: Seasonal allergies 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 True cyst removed from left ear 2009 GI Surgical History: Reports: Appendectomy - SUBSTANCE USE Tobacco Use Status *Q: Never Tobacco User Tobacco Use Within Last Twelve Months: No Second Hand Smoke Exposure: No Recreational Drug Use History: No - HOME MEDS Home Medications: Home Meds Aspirin [Adult Low Dose Aspirin EC] 81 mg PO DAILY 12/17/20 [History] Cetirizine [ZyrTEC] 1 tab PO DAILY PRN 12/17/20 [History] Ferrous Sulfate [Iron] 1 tab PO DAILY 12/17/20 [History] Montelukast [Singulair] 1 tab PO DAILY PRN 12/17/20 [History] Pnv No.95/Ferrous Fum/Folic AC [ Vitamin Tablet] 1 tab PO DAILY 12/17/20 [History] - CURRENT (IN HOUSE) MEDS Current Meds: Current Medications Acetaminophen (Acetaminophen 325 Mg Tab) 650 mg PO Q4H PRN PRN Reason: Pain (Mild 1-3) and fever Diphenhydramine HCl (Diphenhydramine 50 Mg/Ml Sdv) 25 mg IVPUSH Q6H PRN PRN Reason: pruritis Ephedrine Sulfate (Ephedrine 50 Mg/Ml Sdv) 5 mg IVPUSH ASDIRECTED PRN PRN Reason: Hypotension Fentanyl (Fentanyl 100 Mcg/2 Ml Sdv) 100 mcg EPIDUR Q3H PRN PRN Reason: Pain Fentanyl/Bupivacaine HCl (Bupivacaine/Fentanyl/Ns 100 Ml Bag) 100 ml EPIDUR ASDIRECTED PRN PRN Reason: Pain Oxytocin/Lactated Ringer's (Pitocin In Lr 10 Units/1,000 Ml) 10 unit in 1,000 mls @ 12 mls/hr IV TITRATE NITIN; Protocol Last Titration: 12/17/20 08:56 Dose: 0 munits/min, 0 mls/hr Documented by: Lactated Ringer's (Ringers, Lactated) 1,000 mls @ 100 mls/hr IV ASDIRECTED NITIN Last Admin: 12/17/20 04:53 Dose: 100 mls/hr Documented by: Nalbuphine HCl (Nalbuphine 10 Mg/1 Ml Vial) 10 mg IVPUSH Q2H PRN PRN Reason: Pain Sodium Chloride (Sodium Chloride 0.9% 10 Ml Syringe) 10 ml FLUSH ASDIRECTED PRN PRN Reason: Keep Vein Open Discontinued Medications Lidocaine HCl (Lidocaine 1% 50 Ml Mdv) 50 ml INJECT ONETIME ONE Stop: 12/17/20 03:04
--- NOTE | 2020-12-17 13:37 | PCM.SN.2 ---
- Free Text/Narrative Note: Delivery note: Stage I: Romi is a 24-year old 4 now para 1-2-1-3 female at 37-2/7 weeks gestational age with an ELKIN of 01/05/2021 who was admitted for medical induction of labor on the a.m. of 12/17/2020 because of hypertension in . Pitocin was started and patient was noted to be 3 cm dilated. She b rought the head well down against the cervix and AROM was performed with resultant clear amniotic fluid. She progressed more rapidly to complete cervical dilation. She underwent epidural for labor analgesia. heart tones were reassuring. Blood pressures were somewhat labile but once epidural is in place they return to high normal range. Stage II: The patient became complete at approximately 1200 hrs. on 12/17/2020. She pushed approximately 2 contractions and delivered at 1225 hrs. The male infant was delivered in a direct OP position. He was placed on patient's abdomen and dried with warm blanket with nose and mouth bulb suctioned. The cord was allowed to pulsate x3 minutes and then was clamped x2 and cut by the baby's father. The cord had 3 vessels. Cord blood was obtained. Patient had no lacerations therefore required no suturing. The baby was male , weight 2970 g (6 pounds 9 ounces), had Apgars of 8 and 9 and a length of 20.5 inches. Pitocin was increased to 500 cc/h with the routine solution concentration. This to facilitate increase in uterine tone and decrease likelihood of bleeding. Stage III: The placenta delivered in a Lynn presentation at approximately 1230 hrs. It appeared intact and complete and was discarded per patient desire. Estimated blood loss was 100 cc. The epidural catheter was removed after the procedure. Patient tolerated this well. Patient plans to breast-feed. Condition: Good
[2020-12-17] MEDS ORDERED: Witch Hazel Medicated Pads 40/Jar TOP PRN (14:14)
[2020-12-17] MEDS ORDERED: Benzocaine/Menthol 20%-0.5% Spray 56 GM Canister TOP PRN (14:14)
[2020-12-17] MEDS ORDERED: Docusate Sodium 100 MG Cap PO PRN (14:14)
[2020-12-17] MEDS: Ibuprofen 600 MG Tab PO PRN ×2 (14:55→20:53)
[2020-12-18] MEDS: Ibuprofen 600 MG Tab PO PRN (06:53)
--- NOTE | 2020-12-18 07:43 | PCM.DCSUM1 ---
Discharge Summary - Hospital Course Diagnosis: Stroke: No - Discharge Data Discharge Date: 12/18/20 Discharge Disposition: Home, Self-Care 01 Condition: Good - Referral to Home Health Primary Care Physician: Antonio Jamison MD - Patient Summary/Data Hospital Course: Delivery note: Stage I: Romi is a 24-year old 4 now para 1-2-1-3 female at 37-2/7 weeks gestational age with an ELKIN of 01/05/2021 who was admitted for medical induction of labor on the a.m. of 12/17/2020 because of hypertension in . Pitocin was started and patient was noted to be 3 cm dilated. She brought the head well down against the cervix and AROM was performed with resultant clear amniotic fluid. She progressed more rapidly to complete cervical dilation. She underwent epidural for labor analgesia. heart tones were reassuring. Blood pressures were somewhat labile but once epidural is in place they return to high normal range. Stage II: The patient became complete at approximately 1200 hrs. on 12/17/2020. She pushed approximately 2 contractions and delivered at 1225 hrs. The male was delivered in a direct OP position. He was placed on patient's abdomen and dried with warm blanket with nose and mouth bulb suctioned. The cord was allowed to pulsate x3 minutes and then was clamped x2 and cut by the baby's father. The cord had 3 vessels. Cord blood was obtained. Patient had no lacerations therefore required no suturing. The baby was male infant, weight 2970 g (6 pounds 9 ounces), had Apgars of 8 and 9 and a length of 20.5 inches. Pitocin was increased to 500 cc/h with the routine solution concentration. This to facilitate increase in uterine tone and decrease likelihood of bleeding. Stage III: The placenta delivered in a Lynn presentation at approximately 1230 hrs. It appeared intact and complete and was discarded per patient desire. Estimated blood loss was 100 cc. The epidural catheter was removed after the procedure. Patient tolerated this well. Patient plans to breast-feed. Condition: Good - Patient Instructions Activity: No Strenuous Activities Driving: May Drive Today Notify Provider of: Fever, Increased Pain, Swelling and Redness, Drainage, Nausea and/or Vomiting - Discharge Plan *PRESCRIPTION DRUG MONITORING PROGRAM REVIEWED*: No *COPY OF PRESCRIPTION DRUG MONITORING REPORT IN PATIENT GUILHERME: No Home Medications: Home Meds Aspirin [Adult Low Dose Aspirin EC] 81 mg PO DAILY 12/17/20 [History] Cetirizine [ZyrTEC] 1 tab PO DAILY PRN 12/17/20 [History] Ferrous Sulfate [Iron] 1 tab PO DAILY 12/17/20 [History] Montelukast [Singulair] 1 tab PO DAILY PRN 12/17/20 [History] Pnv No.95/Ferrous Fum/Folic AC [ Vitamin Tablet] 1 tab PO DAILY 12/17/20 [History] Referrals: Ladan Sams MD [Physician] - (2 weeks) - Discharge Summary/Plan Comment DC Time >30 min.: No - Patient Data Vitals - Most Recent: Last Vital Signs Temp 36.7 C 12/18/20 04:21 Pulse 99 12/18/20 04:21 Resp 14 12/18/20 04:21 BP 140/51 L 12/18/20 04:21 Pulse Ox 96 12/18/20 04:21 Weight - Most Recent: 132.177 kg I&O - Last 24 hours: Intake & Output 12/17/20 12/18/20 12/18/20 22:59 06:59 14:59 Intake Total 4220 Output Total 199 Balance 4021 Lab Results - Last 24 hrs: Laboratory Results - last 24 hr 12/17/20 12/17/20 Range/Units 03:20 03:20 RPR Non-reactive (NONREACTIVE) Blood Type O NEGATIVE Gel Antibody Screen Positive Screen 0 ros/5 flds - neg RhIG Candidate? Yes Med Orders - Current: Current Medications Acetaminophen (Acetaminophen 325 Mg Tab) 650 mg PO Q4H PRN PRN Reason: mild pain or fever Benzocaine/Menthol (Benzocaine/Menthol 20%-0.5% [place] 56 Gm Canister) 0 gm TOP ASDIRECTED PRN PRN Reason: Perineal Comfort Measure Last Admin: 12/17/20 14:55 Dose: 1 can Documented by: Docusate Sodium (Docusate Sodium 100 Mg Cap) 100 mg PO BID PRN PRN Reason: Constipation Ibuprofen (Ibuprofen 600 Mg Tab) 600 mg PO Q4H PRN PRN Reason: Mild pain or fever Last Admin: 12/18/20 06:53 Dose: 600 mg Documented by: Prenat Multivit/Patient Accounting Representative/Iron/Folic Ac ( Multivitamin With Calcium/Folic Acid/Iron Tab) 1 each PO DAILY [facility] [place] Lydia (Witch Lydia Medicated Pads 40/Jar) 1 pad TOP ASDIRECTED PRN PRN Reason: Perineal Comfort Measure Last Admin: 12/17/20 14:54 Dose: 1 tub Documented by: Discontinued Medications Acetaminophen (Acetaminophen 325 Mg Tab) 650 mg PO Q4H PRN PRN Reason: Pain (Mild 1-3) and fever Diphenhydramine HCl (Diphenhydramine 50 Mg/Ml Sdv) 25 mg IVPUSH Q6H PRN PRN Reason: pruritis Ephedrine Sulfate (Ephedrine 50 Mg/Ml Sdv) 5 mg IVPUSH ASDIRECTED PRN PRN Reason: Hypotension Fentanyl (Fentanyl 100 Mcg/2 Ml Sdv) 100 mcg EPIDUR Q3H PRN PRN Reason: Pain Last Admin: 12/17/20 09:17 Dose: 100 mcg Documented by: Fentanyl/Bupivacaine HCl (Bupivacaine/Fentanyl/Ns 100 Ml Bag) 100 ml EPIDUR ASDIRECTED PRN PRN Reason: Pain Last Admin: 12/17/20 09:17 Dose: 100 ml Documented by: Oxytocin/Lactated Ringer's (Pitocin In Lr 10 Units/1,000 Ml) 10 unit in 1,000 mls @ 12 mls/hr IV TITRATE [facility]; Protocol Last Admin: 12/17/20 13:16 Dose: 166.5 munits/min, 999 mls/hr Documented by: Lactated Ringer's (Ringers, Lactated) 1,000 mls @ 100 mls/hr IV ASDIRECTED [facility] Last Admin: 12/17/20 09:48 Dose: 100 mls/hr Documented by: Lidocaine HCl (Lidocaine 1% 50 Ml Mdv) 50 ml INJECT ONETIME ONE Stop: 12/17/20 03:04 Last Admin: 12/17/20 16:55 Dose: Not Given Documented by: Nalbuphine HCl (Nalbuphine 10 Mg/1 Ml Vial) 10 mg IVPUSH Q2H PRN PRN Reason: Pain Sodium Chloride (Sodium Chloride 0.9% 10 Ml Syringe) 10 ml FLUSH ASDIRECTED PRN PRN Reason: Keep Vein Open
[2020-12-18] MEDS ORDERED: Prenatal Multivitamin with Calcium/Folic Acid/Iron Tab PO SCH (09:00)
[2020-12-18 09:57] VITALS: BP 147/96; PULSE 108
--- NOTE | 2020-12-18 12:44 | PCM48HPAN ---
Post Anesthesia Note - EVALUATION WITHIN 48HRS OF ANESTHETIC Vital Signs in Normal Range: Yes Patient Participated in Evaluation: Yes Respiratory Function Stable: Yes Airway Patent: Yes Cardiovascular Function Stable: Yes Hydration Status Stable: Yes Pain Control Satisfactory: Yes Nausea and Vomiting Control Satisfactory: Yes Mental Status Recovered: Yes Vital Signs: Last Vital Signs Temp 36.8 C 12/18/20 08:46 Pulse 108 H 12/18/20 08:46 Resp 16 12/18/20 08:46 BP 147/96 H 12/18/20 08:46 Pulse Ox 98 12/18/20 08:46
== END 2020-12-18 14:55 | disposition home or self-care (01) | DRG 807 ==
LOC: JD.OB 02:52 → OBSVTOIN 12:25 → MERGE 12:25 → JD.OB 12:26
PROVIDERS: ADMIT Obstetrics & Gynecology; ATTEND Obstetrics & Gynecology
PROC: 10E0XZZ Delivery of Products of Conception, External Approach (ICD-10-PCS; principal; 2020-12-17)
PROC: 10907ZC Drainage of Amniotic Fluid, Therapeutic from Products of Conception, Via Natural or Artificial Opening (ICD-10-PCS; 2020-12-17)
PROC: 3E033VJ Introduction of Other Hormone into Peripheral Vein, Percutaneous Approach (ICD-10-PCS; 2020-12-17)
PROC: 3E0R3BZ Introduction of Anesthetic Agent into Spinal Canal, Percutaneous Approach (ICD-10-PCS; 2020-12-17)
PROC: 3E0334Z Introduction of Serum, Toxoid and Vaccine into Peripheral Vein, Percutaneous Approach (ICD-10-PCS; 2020-12-18)
DX: O16.4 Unspecified maternal hypertension, complicating childbirth (principal); Z37.0 Single live birth; O99.52 Diseases of the respiratory system complicating childbirth; J45.909 Unspecified asthma, uncomplicated; O99.344 Other mental disorders complicating childbirth; F41.9 Anxiety disorder, unspecified; Z20.822 Contact with and (suspected) exposure to COVID-19; F32.9 Major depressive disorder, single episode, unspecified; O99.02 Anemia complicating childbirth; D64.9 Anemia, unspecified; O99.214 Obesity complicating childbirth; E66.9 Obesity, unspecified; O26.893 Other specified pregnancy related conditions, third trimester; Z67.41 Type O blood, Rh negative; Z3A.37 37 weeks gestation of pregnancy; Z79.82 Long term (current) use of aspirin
CPT/HCPCS: 01967; 36415; 51702; 59025; 59409; 85025; 85461; 86592; 86803; 86850; 86870; 86900; 86901; A9270-GY; J2590; J2790; J3010; J3490; J7120; U0002

== ENCOUNTER 2021-06-01 18:30 | Emergency (ER) | payer MEDICAID | END 2021-06-01 20:29 | disposition left against medical advice (07) | LOC: JD.ED 18:30 | DX: N39.9 Disorder of urinary system, unspecified (principal); Z53.21 Procedure and treatment not carried out due to patient leaving prior to being seen by health care provider ==

== ENCOUNTER 2021-06-03 05:34 | Emergency (ER) | payer MEDICAID ==
[2021-06-03 05:58] VITALS: BP 135/98; PULSE 99
--- NOTE | 2021-06-03 06:15 | EDM.PDOC ---
ED HPI GENERAL MEDICAL PROBLEM - General Chief Complaint: Respiratory Problem Stated Complaint: POSS COVID Time Seen by Provider: 06/03/21 05:54 Source of Information: Reports: Patient History Limitations: Reports: No Limitations - History of Present Illness INITIAL COMMENTS - FREE TEXT/NARRATIVE: Mrs. Reyes is a very pleasant 26-year-old woman who now presents the ED stating that she developed fatigue, body aches, a possible low-grade fever, a cough productive of yellowish sputum, nasal congestion, headache, and dyspnea this past 06/01/2021. No recent wheezing. She then developed anosmia and ageusia this morning. She would like to be tested for COVID-19. The patient states that she has been taking Sudafed, most recently at 04:00, and Mucinex, neither of which have helped her symptoms. The patient states that no one else in her household is similarly ill. Here in the ED, the patient is found to be hemodynamically stable, afebrile, saturating 99% on room air. She appears to be comfortable, in no acute distress. Prior to Tuesday, the patient denies having a recent fever, chills, sore throat, ear pain, nasal or sinus congestion, cough, dyspnea, chest pain, palpitations, nausea, vomiting, constipation, diarrhea, abdominal pain, urinary symptoms, recent weight gain or weight loss, recent bloody bowel movements or black bowel movements, recent joint aches, headaches, or rashes. The patient's PCP is EDUARDO Merino. She has not received a COVID vaccination, nor an influenza vaccination this season. - Related Data Allergies Allergy/AdvReac Type Severity Reaction Status Date / Time latex Allergy Burning Verified 06/03/21 05:58 Home Meds: Home Meds Aspirin [Aspirin EC] 81 mg PO DAILY 10/27/20 [History] Montelukast [Singulair] 10 mg PO DAILY 10/27/20 [History] Pnv,Calcium 72/Iron/Folic Acid [Pnv Plus Multivit Tab] 1 each PO DAILY 10/27/20 [History] Aspirin [Adult Low Dose Aspirin EC] 81 mg PO DAILY 12/17/20 [History] Cetirizine [ZyrTEC] 1 tab PO DAILY PRN 12/17/20 [History] Ferrous Sulfate [Iron] 1 tab PO DAILY 12/17/20 [History] Montelukast [Singulair] 1 tab PO DAILY PRN 12/17/20 [History] Pnv No.95/Ferrous Fum/Folic AC [ Vitamin Tablet] 1 tab PO DAILY 12/17/20 [History] Past Medical History HEENT History: Reports: Allergic Rhinitis Respiratory History: Reports: Asthma (suspected, not PFT-tested) ARTIST SCIENTIFIC History: Reports: Spontaneous Psychiatric History: Reports: Anxiety (untreated), Depression (untreated) - Infectious Disease History Infectious Disease History: Reports: Helicobacter Pylori, TB - Past Surgical History HEENT Surgical History: Reports: Oral Surgery (dental extractions), Other (See Below) (Left ear cyst excision) GI Surgical History: Reports: Appendectomy Female Surgical History: Reports: D&C (x , 2007) Social & Family History - Tobacco Use Tobacco Use Status *Q: Former Tobacco User Years of Tobacco use: 6 Packs/Tins Daily: 1 Month/Year Tobacco Last Used: Quit 2015 Tobacco Use Comment: Started smoking 2009 - Caffeine Use Caffeine Use: Reports: Coffee, Soda - Alcohol Use Alcohol Use History: Yes Alcohol Use Frequency: Socially - Recreational Drug Use Recreational Drug Use: Yes Drug Use in Last 12 Months: No Recreational Drug Type: Reports: Marijuana/Hashish (lSt smoked 2010) - Living Situation & Occupation Living situation: Reports: , with Spouse, with Family (3 kids) 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 ED EXAM, GENERAL - Physical Exam Exam: See Below Exam Limited By: No Limitations General Appearance: Alert, WD/WN, No Apparent Distress Eye Exam: Bilateral Eye: EOMI, Normal Inspection Ears: Normal External Exam, Normal Canal, Hearing Grossly Normal, Normal TMs Nose: Normal Inspection, No Blood, Other (Bilateral nasal congestion) Throat/Mouth: Normal Inspection, Normal Lips, Normal Teeth, Normal Gums, Normal Oropharynx, Normal Voice, No Airway Compromise Head: Atraumatic, Normocephalic Neck: Normal Inspection, Supple, Non-Tender, Full Range of Motion. No: Lymphadenopathy (L), Lymphadenopathy (R) Respiratory/Chest: No Respiratory Distress, Lungs Clear, Normal Breath Sounds, No Accessory Muscle Use. No: Decreased Breath Sounds, Crackles, Rhonchi, Wheezing, Stridor, Prolonged Expiration Cardiovascular: Normal Peripheral Pulses, Regular Rate, Rhythm, No Gallop, No JVD, No Murmur, No Rub Peripheral Pulses: 3+: Radial (L), Radial (R) GI/Abdominal: Normal Bowel Sounds, Soft, Non-Tender, No Organomegaly, No Distention, No Abnormal Bruit, No Mass Extremities: Normal Inspection, Normal Range of Motion, No Pedal Edema, Normal Capillary Refill Neurological: Alert, Oriented, Normal Cognition, No Motor/Sensory Deficits Psychiatric: Normal Affect Skin Exam: Warm, Dry, Intact, Normal Color, No Rash Course - Vital Signs Last Recorded V/S: Last Vital Signs Temp 36.8 C 06/03/21 05:51 Pulse 99 06/03/21 05:51 Resp 20 06/03/21 05:51 BP 135/98 H 06/03/21 05:51 Pulse Ox 99 06/03/21 05:51 - Orders/Labs/Meds Orders: Active Orders 24 hr Category Date Time Status Isolation [COMM] Routine Oth 06/03/21 06:12 Ordered Labs: Laboratory Tests 06/03/21 06/03/21 06/03/21 Range/Units 06:03 06:31 06:31 WBC 3.57 L (3.98-10.04) K/mm3 RBC 4.65 (3.98-5.22) M/mm3 Hgb 12.4 (11.2-15.7) gm/dl Hct 38.6 (34.1-44.9) % MCV 83.0 (79.4-94.8) fl MCH 26.7 (25.6-32.2) pg MCHC 32.1 L (32.2-35.5) g/dl RDW Std Deviation 39.1 (36.4-46.3) fL Plt Count 188 (182-369) K/mm3 MPV 11.3 (9.4-12.3) fl Neutrophils % (Manual) 64 H (40-60) % Band Neutrophils % 1 (0-10) % Lymphocytes % (Manual) 25 (20-40) % Atypical Lymphs % 2 % Monocytes % (Manual) 8 (2-10) % Eosinophils % (Manual) 0 L (0.7-5.8) % Basophils % (Manual) 0 L (0.1-1.2) Platelet Estimate Adequate Plt Morphology Comment Normal RBC Morph Comment Normal Sodium 140 (136-145) mEq/L Potassium 4.0 (3.5-5.1) mEq/L Chloride 105 (98-107) mEq/L Carbon Dioxide 23 (21-32) mEq/L Anion Gap 16.0 H (5-15) BUN 11 (7-18) mg/dL Creatinine 0.8 (0.55-1.02) mg/dL Est Cr Clr Drug Dosing 103.63 mL/min Estimated GFR (MDRD) > 60 (>60) mL/min BUN/Creatinine Ratio 13.8 L (14-18) Glucose 90 (70-99) mg/dL Calcium 8.7 (8.5-10.1) mg/dL Total Bilirubin 0.1 L (0.2-1.0) mg/dL AST 14 L (15-37) U/L ALT 38 (14-59) U/L Alkaline Phosphatase 94 (46-116) U/L C-Reactive Protein <0.2 (<1.0) mg/dL Total Protein 7.3 (6.4-8.2) g/dl Albumin 3.8 (3.4-5.0) g/dl Globulin 3.5 gm/dL Albumin/Globulin Ratio 1.1 (1-2) Influenza Type A RNA Negative (NEGATIVE) Influenza Type B RNA Negative (NEGATIVE) SARS-CoV-2 RNA (MAYE) Positive H (NEGATIVE) - Re-Assessments/Exams Free Text/Narrative Re-Assessment/Exam: 06/03/21 06:13 A swab for the SARS-CoV-2 virus was obtained at triage. I have added an influenza A + B viruses, along with some blood work and a portable chest x-ray. 06/03/21 06:30 Portable chest radiograph appears to be grossly normal. Poor inspiratory effort. The cardiac silhouette is within normal limits. No pulmonary vascular congestion. No pleural effusions seen on this AP view. No focal infiltrate. No pneumothorax. Formal read per the Radiologist pending. 06/03/21 07:57 The patient's CBC is remarkable for mild leukopenia of 3.57, and is otherwise unremarkable. Her CMP is unremarkable. Her CRP is undetectably low. Her swab for the SARS-CoV-2 virus is positive. Her swab for influenza A + B viruses is negative. 06/03/21 08:01 Test results discussed with the patient. As above, she has COVID-19. Because her CRP is undetectably low, she will not likely suffer severe complications from COVID-19, therefore I am not offering monoclonal antibodies, given that we have a limited supply. She should stay adequately hydrated, and she can take OTC ibuprofen as needed for discomfort. She will need to strictly isolate until she tests negative. I recommended that she get retested on or about 06/13/2021. I will provide her with a note for work. It is most likely that the patient's and 3 kids are infected as well. I recommended that they to strictly isolate until they each test negative. Departure - Departure Time of Disposition: 08:03 Disposition: Home, Self-Care 01 Condition: Good Clinical Impression: COVID-19 - Discharge Information *PRESCRIPTION DRUG MONITORING PROGRAM REVIEWED*: Not Applicable *COPY OF PRESCRIPTION DRUG MONITORING REPORT IN PATIENT GUILHERME: Not Applicable Referrals: Kandace Wilkins PA-C [Primary Care Provider] - Forms: ED Department Discharge, ED Return to Work/School Form Additional Instructions: You were seen in the emergency room after developing fatigue, body aches, a low- grade fever, a cough, nasal congestion, headache, and shortness of breath on Tuesday, followed by a loss of taste and smell this morning. Work-up in the ER included several blood tests, a swab for the SARS-CoV-2 virus and influenza A + B viruses, and a chest x-ray. Your swab for the SARS-CoV-2 virus returned positive, meaning that you have COVID-19. Your other tests were unremarkable or negative. Your CRP, a measure of inflammation, returned undetectably low, indicating that you will most likely not suffer severe consequences of COVID-19. For this reason, treatment with monoclonal antibodies was not offered, as we only have a limited supply. We recommend that you stay adequately hydrated. You may take [id number] ibuprofen as needed for discomfort. As discussed, it is imperative that you strictly isolate until you test negative. On average, that takes 10 days, therefore we recommend that you get retested on or about 06/13/2021. A note to be off work through then has been provided to you. As discussed, it is a near certainty that your and 3 children are also infected. We recommend that they also remain strictly isolated until the each test negative. If any other problems, please do not hesitate to return to the ER. Sepsis Event Note (ED) - Evaluation Sepsis Screening Result: No Definite Risk - Focused Exam Vital Signs: Vital Signs Temp Pulse Resp BP Pulse Ox 06/03/21 05:51 36.8 C 99 20 135/98 H 99 - My Orders Last 24 Hours: My Active Orders 06/03/21 06:12 Isolation [COMM] Routine - Assessment/Plan Last 24 Hours: My Active Orders 06/03/21 06:12 Isolation [COMM] Routine
--- NOTE | 2021-06-03 06:50 | CR ---
Chest: Frontal view of the chest was obtained. Comparison: Prior chest x-ray of 05/31/15. Heart size and mediastinum are normal. Lungs are clear with no acute parenchymal change. Bony structures show nothing acute. Impression: 1. Nothing acute is seen on frontal chest x-ray. 2. No change from previous study is seen. Diagnostic code #1
[2021-06-03 07:18] LABS: CORONAVIRUS COVID-19 NAA POSITIVE (NEGATIVE)
== END 2021-06-03 08:31 | disposition home or self-care (01) ==
LOC: JD.ED 05:34
DX: U07.1 COVID-19 (principal); Z91.040 Latex allergy status; Z79.82 Long term (current) use of aspirin; Z87.891 Personal history of nicotine dependence
CPT/HCPCS: 0240U; 36415; 71045; 80053; 85007; 85027; 86140; 99283

== ENCOUNTER 2021-06-05 22:25 | Emergency (ER) | payer MEDICAID ==
[2021-06-05 22:37] VITALS: BP 157/100; PULSE 106
--- NOTE | 2021-06-05 23:28 | EDM.PDOC ---
ED HPI GENERAL MEDICAL PROBLEM - General Chief Complaint: Respiratory Problem Stated Complaint: COVID + Time Seen by Provider: 06/05/21 23:00 Source of Information: Reports: Patient History Limitations: Reports: No Limitations - History of Present Illness INITIAL COMMENTS - FREE TEXT/NARRATIVE: Patient is a 26-year-old female presenting to the emergency room with a complaint of shortness of breath. Patient started having symptoms on Tuesday. She did test positive for COVID-19. She was in the emergency room on Tuesday and underwent evaluation of work-up. She did not receive any treatment at that time. Patient reports symptoms are continuing to get worse. She feels increasingly short of breath but denies any chest pain. States today she also started having diarrhea. Denies abdominal pain. She states she is asthmatic and does not have any of her medications either. Headache Pain Score (Numeric/FACES): 5 - Related Data Allergies Allergy/AdvReac Type Severity Reaction Status Date / Time latex Allergy Burning Verified 06/05/21 22:38 Home Meds: Home Meds Albuterol [Proventil HFA] 2 puff INH Q4H PRN #1 ea 06/06/21 [Rx] Past Medical History - Past Health History Medical/Surgical History: Denies Medical/Surgical History HEENT History: Reports: Allergic Rhinitis Other HEENT History: Seasonal allergies Cardiovascular History: Reports: None Respiratory History: Reports: Asthma Other Respiratory History: allergies Gastrointestinal History: Reports: Helicobacter Pylori Genitourinary History: Reports: Other (See Below) Other Genitourinary History: dysuria SAND BLASTER History: Reports: Spontaneous Other SAND BLASTER History: D&C 2018 Musculoskeletal History: Reports: None Neurological History: Reports: None Other Neuro History: dizziness Psychiatric History: Reports: Anxiety, Depression Endocrine/Metabolic History: Reports: None Hematologic History: Reports: Anemia Other Hematologic History: Anemia in Immunologic History: Reports: None Oncologic (Cancer) History: Reports: None Dermatologic History: Reports: Benign Melanoma, Urticaria Other Dermatologic History: rashes to left leg, stated as ringworm - Infectious Disease History Infectious Disease History: Reports: Helicobacter Pylori, Novel Coronavirus, TB - Past Surgical History Head Surgeries/Procedures: Reports: None HEENT Surgical History: Reports: Oral Surgery, Other (See Below) Other HEENT Surgeries/Procedures: wisdom teeth extraction 2013. True cyst removed from left ear 2009 Respiratory Surgical History: Reports: None GI Surgical History: Reports: Appendectomy Female Surgical History: Reports: D&C Neurological Surgical History: Reports: None Musculoskeletal Surgical History: Reports: None Oncologic Surgical History: Reports: None Social & Family History - Family History Family Medical History: No Pertinent Family History - Tobacco Use Tobacco Use Status *Q: Never Tobacco User Second Hand Smoke Exposure: No - Caffeine Use Caffeine Use: Reports: Coffee, Soda - Recreational Drug Use Recreational Drug Use: No - Living Situation & Occupation Living situation: Reports: , with Spouse, with Family (3 kids) Occupation: Employed ([employer]) ED ROS GENERAL - Review of Systems Review Of Systems: See Below Free Text/Narrative/Comment: In addition to that documented in the HPI above, the additional ROS was obtained: Constitutional: Positive fevers or chills Eyes: Denies vision changes ENMT: Denies sore throat CV: Denies chest pain Resp: Per HPI GI: Per HPI : Denies painful urination MSK: Denies recent trauma Skin: Denies new rashes Neuro: Denies new numbness or tingling or weakness Endocrine: Denies unexpected weight loss Heme: Denies bleeding disorders ED EXAM, GENERAL - Physical Exam Exam: See Below Free Text/Narrative:: I have reviewed the triage vital signs Const: Well nourished, well developed, appears stated age Eyes: Pupils Equal and reactive to light bilaterally, no conjunctival injection HENT: No signs of trauma or swelling, Neck supple without meningismus CV: Regular Rate Rhythm, Warm, well-perfused extremities RESP: Unlabored respiratory effort. No wheezes. Speaking full sentences wi thout difficulty. GI: soft, non-tender, non-distended, no masses MSK: No gross deformities appreciated Skin: Warm, dry. No rashes Neuro: Alert, manager revenue II-XII grossly intact. Sensation and motor function of extremities grossly intact. Psych: Appropriate mood and affect. Course - Vital Signs Last Recorded V/S: Last Vital Signs Temp 36.9 C 06/05/21 22:36 Pulse 106 H 06/05/21 22:36 Resp 20 06/05/21 22:36 BP 157/100 H 06/05/21 22:36 Pulse Ox 93 L 06/05/21 22:36 - Orders/Labs/Meds Orders: Active Orders 24 hr Category Date Time Status Chest 1V Frontal [CR] Stat Exams 06/05/21 22:54 Taken Labs: Laboratory Tests 06/05/21 06/05/21 06/05/21 Range/Units 23:08 23:08 23:08 WBC 4.79 (3.98-10.04) K/mm3 RBC 4.37 (3.98-5.22) M/mm3 Hgb 11.7 (11.2-15.7) gm/dl Hct 36.0 (34.1-44.9) % MCV 82.4 (79.4-94.8) fl MCH 26.8 (25.6-32.2) pg MCHC 32.5 (32.2-35.5) g/dl RDW Std Deviation 39.5 (36.4-46.3) fL Plt Count 158 L (182-369) K/mm3 MPV 10.8 (9.4-12.3) fl Neut % (Auto) 63.5 (34.0-71.1) % Lymph % (Auto) 28.0 (19.3-51.7) % [place] % (Auto) 8.1 (4.7-12.5) % Eos % (Auto) 0 L (0.7-5.8) Baso % (Auto) 0.2 (0.1-1.2) % Neut # (Auto) 3.04 (1.56-6.13) K/mm3 Lymph # (Auto) 1.34 (1.18-3.74) K/mm3 [place] # (Auto) 0.39 H (0.24-0.36) K/mm3 Eos # (Auto) 0.00 L (0.04-0.36) K/mm3 Baso # (Auto) 0.01 (0.01-0.08) K/mm3 PT 10.5 (9.7-12.0) SECONDS INR 0.94 Sodium 138 (136-145) mEq/L Potassium 3.6 (3.5-5.1) mEq/L Chloride 101 (98-107) mEq/L Carbon Dioxide 26 (21-32) mEq/L Anion Gap 14.6 (5-15) BUN 9 (7-18) mg/dL Creatinine 0.8 (0.55-1.02) mg/dL Est Cr Clr Drug Dosing 103.63 mL/min Estimated GFR (MDRD) > 60 (>60) mL/min BUN/Creatinine Ratio 11.3 L (14-18) Glucose 95 (70-99) mg/dL Calcium 8.3 L (8.5-10.1) mg/dL Total Bilirubin 0.2 (0.2-1.0) mg/dL AST 37 (15-37) U/L ALT 69 H (14-59) U/L Alkaline Phosphatase 86 (46-116) U/L C-Reactive Protein 1.0 (<1.0) mg/dL Total Protein 7.2 (6.4-8.2) g/dl Albumin 3.7 (3.4-5.0) g/dl Globulin 3.5 gm/dL Albumin/Globulin Ratio 1.1 (1-2) Meds: Medications Discontinued Medications Generic Name Dose Route Start Last Admin Trade Name Freq PRN Reason Stop Dose Admin Diphenhydramine HCl 50 mg 06/06/21 00:02 Diphenhydramine 50 Mg/Ml Sdv IVPUSH ASDIRECTED PRN hypersensitivity reaction Epinephrine HCl 0.3 mg 06/06/21 00:02 Epinephrine 1 Mg/Ml Sdv IM ASDIRECTED PRN hypersensitivity reaction Famotidine 20 mg 06/06/21 00:02 Famotidine 20 Mg/2 Ml Sdv IVPUSH ASDIRECTED PRN hypersensitivity reaction SOTROVIMAB 500 mg/ Sodium 108 mls @ 216 mls/hr 06/06/21 00:02 Chloride IV 06/06/21 00:31 ONETIME ONE CASIRIVIMAB/IMDEVIMAB 10 ml/ 110 mls @ 220 mls/hr 06/06/21 00:05 06/06/21 00:47 Sodium Chloride IV 06/06/21 00:34 220 mls/hr ONETIME ONE Administration Methylprednisolone Sodium Succinate 125 mg 06/06/21 00:02 Methylprednisolone Sodium Succinate 125 Mg/2 Ml Sdv IVPUSH ASDIRECTED PRN hypersensitivity reaction Sodium Chloride 30 ml 06/06/21 00:15 Sodium Chloride 0.9% 10 Ml Syringe FLUSH ASDIRECTED NITIN Departure - Departure Time of Disposition: 01:58 Disposition: Home, Self-Care 01 Clinical Impression: COVID-19 - Discharge Information Prescriptions: Albuterol [Proventil HFA] 2 puff INH Q4H PRN #1 ea PRN Reason: Shortness Of Breath Instructions: COVID-19 Frequently Asked Questions Referrals: Kandace Wilkins PA-C [Primary Care Provider] - Forms: ED Department Discharge Sepsis Event Note (ED) - Focused Exam Vital Signs: Vital Signs Temp Pulse Resp BP Pulse Ox 06/05/21 22:36 36.9 C 106 H 20 157/100 H 93 L - My Orders Last 24 Hours: My Active Orders 06/05/21 22:54 Chest 1V Frontal [CR] Stat - Assessment/Plan Last 24 Hours: My Active Orders 06/05/21 22:54 Chest 1V Frontal [CR] Stat Assessment:: Patient presents with COVID-19 and shortness of breath. Vital signs were stable in the emergency room. No evidence of hypoxia or severe respiratory distress. Laboratory studies reviewed without significant abnormalities. No evidence of bacterial pneumonia on chest x-ray. Patient will be initiated on medical antibiotics given risk factors and onset of illness. She tolerated this well without immediate complication. Discharged in stable condition. I spoke with patient to provide information about antibiotic infusion. I offered them the patient and caregiver EUA back she to read and review state of the drug has been approved for emergency use authorization and has not been fully FDA reviewed or approved. The patient meets the EUA requirements I discussed the other potential treatment options that are currently not FDA approved to treat COVID-19. Offered opportunity to ask questions and all questions were answered Voiced understanding and agreed to proceed with treatment for COVID-19
[2021-06-06] MEDS ORDERED: methylPREDNISolone Sodium Succinate 125 MG/2 ML SDV IVPUSH PRN (00:02)
[2021-06-06] MEDS ORDERED: EPINEPHrine 1 MG/ML SDV IM PRN (00:02)
[2021-06-06] MEDS ORDERED: Famotidine 20 MG/2 ML SDV IVPUSH PRN (00:02)
[2021-06-06] MEDS ORDERED: diphenhydrAMINE 50 MG/ML SDV IVPUSH PRN (00:02)
[2021-06-06] MEDS ORDERED: Sodium Chloride 0.9% 10 ML Syringe FLUSH SCH (00:15)
--- NOTE | 2021-06-06 12:28 | CR ---
Chest: Frontal view of the chest was obtained. Comparison: Prior chest x-ray of 06/03/21. Patchy increasing density is seen within both sides of the chest. Lungs otherwise are clear. Heart size and mediastinum are normal. Bony structures show nothing acute. Impression: 1. Mild increasing COVID pneumonia within both lungs. Diagnostic code #3
== END 2021-06-06 02:32 | disposition home or self-care (01) ==
LOC: JD.ED 22:25
DX: U07.1 COVID-19 (principal); J45.909 Unspecified asthma, uncomplicated; Z91.040 Latex allergy status
CPT/HCPCS: 36415; 80053; 85025; 85610; 86140; 99285; M0243; Q0243; 71045; 71045-26; 99284

== ENCOUNTER 2022-06-03 15:34 | Emergency (ER) | payer MEDICAID ==
[2022-06-03] MEDS ORDERED: diphenhydrAMINE 50 MG/ML SDV IM ONE (16:03)
[2022-06-03] MEDS ORDERED: methylPREDNISolone Sodium Succinate 125 MG/2 ML SDV IM ONE (16:03)
[2022-06-03] MEDS ORDERED: Famotidine 20 MG Tab PO ONE (16:03)
[2022-06-03 18:04] VITALS: BP 153/93; PULSE 72
== END 2022-06-03 18:04 | disposition home or self-care (01) ==
LOC: JD.ED 15:34
DX: T78.40XA Allergy, unspecified, initial encounter (principal); Z91.040 Latex allergy status
CPT/HCPCS: 96372; 99283; A9270; J1200; J2930